=== PATIENT | female | born 1965 | race Caucasian/White ===

== ENCOUNTER → 2016-03-30 | Outpatient (CLI) | payer OTHER ==
[2016-03-30 13:15] LABS: Basophils % (A) 0 %; CH 30.7; CHCM 33.2; Eosinophils # (A) 0.1 k/uL (0-0.7); Eosinophils % (A) 1 %; HCT 46.1 % (34.0-46.0); HDW 2.98; HGB 15.1 gm/dL (11.4-16.0); Luc # (Auto) 0.12; Luc % (Auto) 2; Lymphocytes # (A) 1.5 k/uL (1.0-4.8); Lymphocytes % (A) 25 %; MCH 30.3 pg (25.0-35.0); MCHC 32.7 g/dL (31.0-37.0); MCV 92.8 fL (80.0-100.0); Mean Platelet Volume 7.5; Monocytes # (A) 0.2 k/uL (0-1.0); Monocytes % (A) 4 %; Neutrophils # (A) 4.2 k/uL (1.3-7.7); Neutrophils % (A) 69 %; RBC 4.97 m/uL (3.80-5.40); RDW 15.3 % (11.5-15.5); WBC 6.1 k/uL (3.8-10.6); WBC (Perox) 6.28
[2016-03-30 13:25] LABS: ALT 61 U/L (9-52); AST 37 U/L (14-36); Alkaline Phosphatase 109 U/L (38-126); Amylase <30 U/L (30-110); Anion Gap 14 mmol/L; Blood Urea Nitrogen 8 mg/dL (7-17); Calcium 9.8 mg/dL (8.4-10.2); Carbon Dioxide 27 mmol/L (22-30); Chloride 99 mmol/L (98-107); Glucose 346 mg/dL (74-99); Non-African American GFR(MDRD) >60 (>60 ml/min/1.73 sqM); Potassium 4.5 mmol/L (3.5-5.1); Sodium 140 mmol/L (137-145); Total Bilirubin 0.9 mg/dL (0.2-1.3); Total Protein 8.3 g/dL (6.3-8.2)
--- NOTE | 2016-03-30 14:35 | US ---
EXAMINATION TYPE: US abdomen complete DATE OF EXAM: 03/30/2016 1:54 PM COMPARISON: NONE CLINICAL HISTORY: R10.9 UNSPEC.ABD.PAIN. epigastric pain x 4 days; brother and dad have pancreatic CA ; diabetic EXAM MEASUREMENTS: Liver Length: 23.6 cm Gallbladder Wall: 0.2 cm CBD: 0.5 cm Spleen: 13.9 x14.4 x 6.2 cm Right Kidney: 12.9 x 7.8 x 4.0 cm Left Kidney: 11.9 x 6.8 x 5.4 cm TECHNOLOGIST IMPRESSION: Pancreas: The pancreas is echogenic and poorly visualized. Liver: fatty with focal sparing noted near gallbladder; enlarged Gallbladder: posterior wall sludge and mobile in LLD Evidence for sonographic Hollins's sign: more tender at level of pancreas CBD: wnl Spleen: enlarged Right Kidney: thinner A/P view when compared to left renal Left Kidney: wnl Upper IVC: wnl Abd Aorta: wnl, distal aorta is gassed out IMPRESSION: HEPATOSPLENOMEGALY.
[2016-03-30 15:01] LABS: Erythrocyte Sedimentation Rate 11 mm/hr (0-20)
== END | disposition home or self-care (01) ==
LOC: RADUSWWP 12:54
PROVIDERS: ATTEND Family Medicine
DX: R16.2 Hepatomegaly with splenomegaly, not elsewhere classified (principal); R10.9 Unspecified abdominal pain
CPT/HCPCS: 76700; 80053; 82150; 83690; 85025; 85652

== ENCOUNTER → 2016-04-03 | Outpatient (CLI) | payer OTHER ==
--- NOTE | 2016-04-03 19:31 | NM ---
EXAMINATION TYPE: NM hepatobiliary wo EF DATE OF EXAM: 04/03/2016 6:32 PM COMPARISON: NONE HISTORY: Right upper quadrant pain TECHNIQUE: After the intravenous administration of 5.5 mCi Tc 99m Mebrofenin hepatobiliary scintigrap hy is performed. Immediate images post injection. FINDINGS: There is prompt uptake of the tracer by the liver that has normal size and contour. There is tracer i n the common bile duct at 10 minutes and in the small bowel at 12 minutes which excludes obstruction of the common bile duct. The delayed images appear to show an oval-shaped area of feint tracer accumu lation in the right upper quadrant consistent with a gallbladder. This is seen on the 3 hour image. IMPRESSION: No focal liver defect. Common bile duct is not obstructed. There is abnormal very little tracer accumulation in the gallbladder suggestive of gallbladder dysfun ction and partial cystic duct obstruction.
== END | disposition home or self-care (01) ==
LOC: RADNMMAIN 14:35
PROVIDERS: ATTEND Family Medicine
DX: R10.11 Right upper quadrant pain (principal)
CPT/HCPCS: 78226; A9537

== ENCOUNTER 2016-04-14 09:18 | Inpatient (IN) | payer OTHER ==
[2016-04-10 10:47] VITALS: BMI 33.3
[~2016-04-14 09:18] MED LIST: DEXAMETHASONE SOD PHOSPHATE 10 MG/ML 1 ML VIAL IV ONE; HYDROmorphone 1 MG/ML 1 ML SYRINGE IVP PRN; MIDAZOLAM 2 MG/2 ML VIAL IV PRN; ONDANSETRON 4 MG/2 ML VIAL IVP ONE; SCOPOLAMINE 1.5MG/72HR PATCH TRANSDERM ONE; ceFAZolin 2 GM in SODIUM CHLORIDE 0.9% 100 ML IVPB ONE
[2016-04-14] MEDS: LACTATED RINGERS 1,000 ML IV SCH ×2 (10:16→10:20)
[2016-04-14] MEDS: LIDOCAINE 1% 20 ML VIAL (10MG/ML) FOR IV START INTRADERMA PRN ×2 (10:17→10:20)
[2016-04-14 10:25] LABS: Glucose,Whole Blood 346 mg/dL (75-99)
[2016-04-14] MEDS ORDERED: INSULIN LISPRO (humaLOG) 300 UNIT/3 ML VIAL SQ ONE ×2 (10:29→13:58)
[2016-04-14] MEDS ORDERED: HEPARIN SODIUM,PORCINE 5,000 UNIT/ML 1 ML VIAL SQ ONE (10:29)
--- NOTE | 2016-04-14 10:31 | P.HPADDEND ---
H&P Addendum H&P Addendum Date: 04/14/16 The patient continues to have RUQ pain. I have recommended a Robot assisted possible laparoscopic possible open cholecystectomy. The patient has consented and is willing to proceed.
[2016-04-14] MEDS ORDERED: SUCCINYLCHOLINE CHLORIDE 100 MG/5 ML SYR IV ONE (10:42)
[2016-04-14] MEDS ORDERED: NEOSTIGMINE 1 MG/ML 10 ML VIAL ONE (10:42)
[2016-04-14] MEDS ORDERED: fentaNYL (PF) 50 MCG/ML 2 ML AMP ONE (10:42)
[2016-04-14] MEDS ORDERED: HYDROmorphone (PF) 1 MG/ML ONE (10:42)
[2016-04-14] MEDS ORDERED: ROCURONIUM BROMIDE 10 MG/ML 10 ML VIAL IV ONE (10:42)
[2016-04-14] MEDS ORDERED: MIDAZOLAM 2 MG/2 ML VIAL ONE (10:42)
[2016-04-14] MEDS ORDERED: GLYCOPYRROLATE 0.2 MG/ML 2 ML VIAL ONE (10:42)
[2016-04-14] MEDS ORDERED: LIDOCAINE 1% INJ 10MG/ML (20 ML MDV) ONE (10:42)
[2016-04-14] MEDS ORDERED: PROPOFOL 10 MG/ML 20 ML VIAL IV ONE (10:42)
[2016-04-14] MEDS ORDERED: BUPIVACAIN-EPI 0.25%-1:200,000 30 ML VIAL SQ ONE (11:11)
[2016-04-14] MEDS ORDERED: LACTATED RINGERS 1,000 ML IV ONE ×3 (13:28→13:54)
[2016-04-14] MEDS ORDERED: ACETAMINOPHEN TAB 325 MG TAB PO PRN (13:54)
[2016-04-14] MEDS ORDERED: NALOXONE 0.4 MG/ML 1 ML VIAL IV PRN (13:54)
[2016-04-14] MEDS ORDERED: ONDANSETRON 4 MG/2 ML VIAL IVP PRN (13:54)
[2016-04-14] MEDS ORDERED: PROMETHAZINE 25 MG TAB PO PRN (13:54)
[2016-04-14 13:57] LABS: Glucose,Whole Blood 365 mg/dL (75-99)
--- NOTE | 2016-04-14 14:35 | P.OP ---
Date of Procedure: 04/14/16 Preoperative Diagnosis: Biliary Dyskinesia Postoperative Diagnosis: Acute and chronic cholecsytitis Procedure(s) Performed: Robot assisted laparoscopic cholecystectomy Anesthesia: AUTUMN Surgeon: Rosie Hernandes Estimated Blood Loss (ml): 50 Pathology: other Condition: stable Disposition: PACU Indications for Procedure: RIght upper quadrant pain Operative Findings: Large distended gallbladder which was acutely inflamed Very large fatty liver that was difficult to retract Significant Amount of intra-abdominal adhesions in the lower half of the abdomen. Stented acutely inflamed gallbladder filled with gallbladder sludge Description of Procedure: Patient is a 41-year-old female who presented with right upper quadrant pain and a clinical diagnosis of chronic cholecystitis was made. After appropriate informed consent and answering all the patient's questions patient taken the operating placement position and given general anesthesia with endotracheal intubation. After an unsuccessful attempt to use the Veress needle for insufflation at the infraumbilical region left upper quadrant was identified and Veress needle was used to enter the abdominal cavity and insufflated to 15 mmHg after confirming its position with the drop test. Once the abdomen insufflated 5 mm Optiview was used to enter the abdominal cavity through the left upper quadrant. At this time we identified significant amount of adhesions from previous surgeries around the [facility]. Another 5 mm port was placed in the left lower quadrant that was a to use as an assist port. Through that 5 mm port using electrocautery those adhesions were taken down so as to allow for placement of the remaining ports. 28 mm ports were placed in the right lower quadrant to monitor port was placed lateral to the umbilicus. The left upper quadrant 500 port was replaced with a 8 mm robotic port. Once all these reports were placed patient placed in reverse Trendelenburg and towards the left. . The robot was docked and Prograsp was taken in arm 2, Cardiere forceps were taken and arm 3 . Camera was through the 12 mm umbilical port site. And a hook cautery was taken in the arm 1. Gallbladder was retracted cephalad and superiorly. Inflammatory adhesions were taken down with the help of electrocautery. Due to the very large fatty liver was difficult to retract appropriately. Assistance was used through the 5 mm cyst port to retract the gallbladder. Peritoneal attachment to the liver on both sides were taken down. In doing so inadvertently we cauterized through the cystic artery. Is actually allowed us to pull down all the inflammatory adhesions. And ultimately gave us good critical view off the cystic duct was then exposed hepatic plate of the gallbladder fossa. Once this that was done the cystic duct was clearly thoroughly skeletonized. Extra-large 5-13 mm hemoclips were placed around the cystic duct and transected sharply with the help of a scissors. The gallbladder had been inadvertently punctured and required multiple irrigation during the procedure. Please also note bradycardia and also been used to help with dissection. The gallbladder was then taken off the gallbladder fossa with electrocautery placed in the Endo Catch bag after undocking the robot and removed the 12 mm port site. Due to continued bleeding from the adhesions that were previously taken down they were cauterized and hemostasis secured. Collar fossa was inspected and cauterized. Surgicel was placed within the gallbladder fossa. Abdomen was thoroughly irrigated and sucked dry there were no spilled stones. Due to the fact there was significant amount of inflammation and spillage around drain was placed in the subhepatic fossa brought out the left 5 mm assist port site. It was secured with the help of 2-0 nylon. Abdomen was thoroughly irrigated and sucked dry. Once this was done the procedure had been completed. There are 12 Mediport site was closed with the help of a David Ta using 0 Vicryl. All 8 mm ports were then removed abdomen was thoroughly desufflated. Skin was closed with 4-0 Monocryl and 6 Dermabond was applied. Patient tolerated procedure well and is was extubated and taken to recovery room in stable condition. Jimenes catheter was removed prior to extubation.
--- NOTE | 2016-04-14 14:45 | P.DS ---
Providers Date of admission: 04/14/16 Expected date of discharge: 04/16/16 Attending physician: Rosie Shields Primary care physician: Edinson Robles - Discharge Diagnosis(es) (1) Morbid (severe) obesity due to excess calories Status: Acute (2) Cholecystitis Status: Acute (3) Diabetic acidosis, type II Status: Acute Hospital Course: Patient a 50-year-old female who presented with right upper quadrant pain radiating to the patch with equivocal HIDA scan showing partial cystic duct obstruction. The gallbladder did show up. Ultrasound showed sludge. Due to continued right upper quadrant pain she was initially placed on antibiotics and scheduled for the first available opening for elective laparoscopy cholecystectomy. Informed consent was obtained for robotic possible straight laparoscopic possible open cholecystectomy. Robot-assisted laparoscopic cholecystectomy was performed and a drain was left in place due to the significant amount of drainage. Patient tolerated the procedure well there were no complications. Postoperatively the patient to a diet was advanced LEIGH drain was monitored closely. Labs were a repeatedly monitored. She continued to make good progress, ambulating, toerlating a diet. Her blood sugars had been elevated at admission due to poor diabteic control and the prim resason for her hospital stay was her pre-existeing hyperglycemia. She was managed inititally in an insulin drip after which her blood sugar control was doen on the lantus. SHe is being discharged home after the blood sugars are in a good range. From the surgical standpoint htere have been no issues. SHe is to keep the drain since it is still putting out signifcant amount of serosanguinous discharge. The patient was discharged home on [place] for pain, Augmentin 875 by mouth twice a day for a week. She is to follow-up in my clinic in 7- 10 days. Pertinent Studies: USG ? sludge HIDA scan Partial cystic duct obstruction Procedures: Robot assisted laparoscopic cholecystectomy Patient Condition at Discharge: Good Plan - Discharge Summary New Discharge Prescriptions: Amoxicillin/Potassium Clav [Augmentin 875-125 Tablet] 1 tab PO Q12HR #8 tab HYDROcodone/APAP 5-325MG [[place] 5-325] 1 tab PO Q4HR PRN #25 tab PRN Reason: Pain Magnesium Hydroxide [Milk of Magnesia] 30 ml PO Q24H PRN #600 ml PRN Reason: Constipation Discharge Medication List Acetaminophen Tab [Tylenol Tab] 650 mg PO Q4-6H PRN 04/10/16 [History] INSULIN LISPRO (HumaLOG) [HumaLOG] See Protocol SQ BID PRN 04/10/16 [History] Insulin Glargine [Lantus] 56 unit SQ BID 04/10/16 [History] Pnv with Ca,No.72/Iron/FA [ Plus Tablet] 1 tab PO DAILY 04/10/16 [ History] sitaGLIPtin PHOS/metFORMIN HCL [Janumet 50-500 mg Tablet] 1 tab PO BID 04/10/16 [History] Amoxic-Pot Clav 875-125Mg [Augmentin 875-125] 1 tab PO BID 04/14/16 [History] Amoxicillin/Potassium Clav [Augmentin 875-125 Tablet] 1 tab PO Q12HR #8 tab [Rx] HYDROcodone/APAP 5-325MG [[place] 5-325] 1 tab PO Q4HR PRN #25 tab 04/14/16 [Rx] Levothyroxine Sodium [Synthroid] 200 mcg PO DAILY 04/14/16 [History] Lisinopril-Hctz 10-12.5 mg [Zestoretic 10-12.5] 1 tab PO DAILY 04/14/16 [History ] Magnesium Hydroxide [Milk of Magnesia] 30 ml PO Q24H PRN #600 ml 04/14/16 [Rx] Follow up Appointment(s)/Referral(s): Rosie Shields MD [STAFF PHYSICIAN] - 04/20/16 2:20 pm Karol Dorantes DO [REFERRING] - 04/17/16 (CALLED PT OFFICE SPOKE TO EVELINE ABOUT APPT. STATES WILL SEND VERSE WRITER A MESSAGE AND CALL PT TO SCHEDULE APPT FOR TIGHTER DIABETIC CONTROL) Shalini Ellis DO [REFERRING] - 04/28/16 Activity/Diet/Wound Care/Special Instructions: Regular diet FOLLOWING CONSISTENT CARB DIET AMbulate as tolerated Use incentive spirometer as directed No driving on pain medications or when having pain May shower in 24 hours No heavy liftin more than 20 lbs for 6 weeks leave jJP drain in till we in follow up visit with dr shields wednesday in office CALL OFFICE WITH ANY QUESTIONS COMMENTS CONCERNS, WORSENING SYMPTOMS. Discharge Disposition: HOME SELF-CARE
[2016-04-14 15:47] LABS: Amylase 59 U/L (30-110)
[2016-04-14] MEDS: KETOROLAC 30 MG/ML 1 ML VIAL IVP SCH ×2 (16:03→20:55)
[2016-04-14] MEDS: SODIUM CHLORIDE 0.9% 1,000 ML IV SCH (17:25)
[2016-04-14] MEDS: HYDROmorphone 1 MG/ML 1 ML SYRINGE IVP PRN ×2 (17:26→20:49)
[2016-04-14] MEDS: PIPERACILLIN-TAZOBACTAM 3.375 GM in DEXTROSE/WATER 1 50ML.BAG IVPB SCH (17:29)
[2016-04-14] MEDS ORDERED: LINAGLIPTIN 5 MG TABLET PO SCH (17:30)
[2016-04-14] MEDS ORDERED: metFORMIN 500 MG TAB PO SCH (17:30)
[2016-04-14 17:52] LABS: Glucose,Whole Blood 438 mg/dL (75-99)
[2016-04-14] MEDS ORDERED: INSULIN LISPRO (humaLOG) 300 UNIT/3 ML VIAL SQ SCH (18:00)
[2016-04-14] MEDS: INSULIN REGULAR 100 UNIT in SODIUM CHLORIDE 0.9% 100 ML IV SCH (18:59)
[2016-04-14 19:04] LABS: Glucose,Whole Blood 397 mg/dL (75-99)
[2016-04-14 20:06] LABS: Hemoglobin A1C 13.6 % (4.2-6.1)
[2016-04-14 20:09] LABS: Glucose,Whole Blood 392 mg/dL (75-99)
[2016-04-14] MEDS ORDERED: INSULIN GLARGINE 100 UNIT/ML 10 ML VIAL SQ SCH (21:00)
[2016-04-14 22:01] LABS: Glucose,Whole Blood 418 mg/dL (75-99)
[2016-04-14 23:06] LABS: Glucose,Whole Blood 400 mg/dL (75-99)
[2016-04-14] MEDS: DOCUSATE 100 MG CAP PO SCH (23:08)
[2016-04-14] MEDS: FAMOTIDINE 20 MG TAB PO SCH (23:08)
[2016-04-15] MEDS: PIPERACILLIN-TAZOBACTAM 3.375 GM in DEXTROSE/WATER 1 50ML.BAG IVPB SCH ×4 (00:05→23:59)
[2016-04-15] MEDS: HYDROmorphone 1 MG/ML 1 ML SYRINGE IVP PRN ×4 (00:13→09:31)
[2016-04-15 01:08] LABS: Glucose,Whole Blood 252 mg/dL (75-99)
[2016-04-15 03:01] LABS: Glucose,Whole Blood 195 mg/dL (75-99)
[2016-04-15] MEDS: KETOROLAC 30 MG/ML 1 ML VIAL IVP SCH ×4 (03:03→21:53)
[2016-04-15] MEDS: INSULIN REGULAR 100 UNIT in SODIUM CHLORIDE 0.9% 100 ML IV SCH (03:17)
[2016-04-15 05:00] LABS: Glucose,Whole Blood 190 mg/dL (75-99)
[2016-04-15] MEDS: SODIUM CHLORIDE 0.9% 1,000 ML IV SCH ×2 (05:02→21:56)
--- NOTE | 2016-04-15 06:25 | CONS ---
DATE OF CONSULTATION: 04/14/2016 REASON FOR CONSULTATION: Medical management requested by Dr. Hernandes. CONSULTATION: This is a 50-year-old patient who follows with Dr. Robles and Dr. Karol Parsons. Patient's chronic conditions include hypertension, hypothyroidism, fatty liver and patient got poorly controlled diabetes. Sugars often times running in the 250s. The patient underwent a laparoscopic cholecystectomy by Dr. Hernandes, found to have a very acutely inflamed gallbladder with gallbladder sludge. Some intra-abdominal lesions were present and a fatty liver was found. Patient came back to the floor, found her sugars ( ) 400, I started the patient on insulin drip. Patient was having pain at the operative site, not much of an appetite. REVIEW OF SYSTEMS: CONSTITUTIONAL: Weak and tired. HEENT: None. RESPIRATORY: None. CARDIOVASCULAR: None. GASTROINTESTINAL: Abdominal pain. GENITOURINARY: None. MUSCULOSKELETAL: None. DERMATOLOGIC: None. HEMATOLOGIC: None. LYMPHATICS: None. PSYCHIATRY: None. NEUROLOGICAL: None. Past history of uncontrolled diabetes, hypertension, hypothyroid, uterine cancer. PAST SURGICAL HISTORY: Hysterectomy, thyroid, cyst on the back, mole upper right ear, LASIK eye surgery. SOCIAL HISTORY: Patient smoked 1/2 to a pack a day for about 30 years; stopped in 2013. 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 FAMILY HISTORY: Pancreatic cancer. HOME MEDICATIONS: 1. Janumet 50/500 one tablet p.o. b.i.d. 2. Plus 1 capsule daily. 3. Zestoretic 11/26.5 one tablet daily. 4. Synthroid 200 mcg daily. 5. Lantus 56 units subcu b.i.d. 6. Humalog scale p.r.n. 7. Augmentin 875 b.i.d. 8. Milk of magnesia. 9. [place] 1 tablet p.o. q.4 p.r.n. ALLERGIES: None. On examination, temperature 98.2, pulse 112, respirations 16, blood pressure 144/88, pulse ox 93% on room air. GENERAL APPEARANCE: Obese; BMI 33.4, sitting up, tired appearing. EYES: Pupils equal. Conjunctivae normal. HEENT: External appearance of nose and ears normal. Oral cavity normal. NECK: JVD not raised. Mass not palpable. RESPIRATORY: Effort normal. LUNGS: Slightly decreased breath sounds. CARDIOVASCULAR: First and second sounds normal. No edema. ABDOMEN: Distended, soft, tenderness. Bowel sounds sluggish. LYMPHATIC: No lymph nodes palpable in the neck or axillae. PSYCHIATRY: Alert and oriented x3. Mood and affect normal. NEUROLOGICAL: Pupils equal. Cranial nerves grossly intact. Power and sensation grossly intact. INVESTIGATIONS: Accu-Cheks up to 400s. Hemoglobin A1c 13.6. ASSESSMENT: 1. Diabetes mellitus type 2, uncontrolled, has been uncontrolled as an outpatient. 2. Essential hypertension. 3. Hypothyroidism. 4. Fatty liver. 5. Obesity. body mass index 33.4. PLAN: Patient's home medications will be resumed. Patient will be put back on Lantus starting in the morning. Will give the patient insulin drip tonight. Will check labs in the morning. We will also start the patient on Humalog with meals. Care was discussed with the patient. Patient also ( ) dietitian. Thank you, Dr. Hernandes
[2016-04-15] MEDS: LEVOTHYROXINE 100 MCG TAB PO SCH (06:42)
[2016-04-15 07:00] LABS: Glucose,Whole Blood 182 mg/dL (75-99)
[2016-04-15 07:24] LABS: Basophils % (A) 0 %; CH 30.8; CHCM 33.1; Eosinophils % (A) 0 %; HCT 42.9 % (34.0-46.0); HDW 2.85; HGB 13.9 gm/dL (11.4-16.0); Luc # (Auto) 0.11; Luc % (Auto) 1; Lymphocytes # (A) 1.3 k/uL (1.0-4.8); Lymphocytes % (A) 15 %; MCH 30.3 pg (25.0-35.0); MCHC 32.4 g/dL (31.0-37.0); MCV 93.5 fL (80.0-100.0); Mean Platelet Volume 7.5; Monocytes # (A) 0.4 k/uL (0-1.0); Monocytes % (A) 5 %; Neutrophils # (A) 6.8 k/uL (1.3-7.7); Neutrophils % (A) 79 %; RBC 4.58 m/uL (3.80-5.40); RDW 14.9 % (11.5-15.5); WBC 8.7 k/uL (3.8-10.6); WBC (Perox) 9.29
[2016-04-15] MEDS ORDERED: INSULIN LISPRO (humaLOG) 300 UNIT/3 ML VIAL SQ SCH ×2 (07:30→08:30)
[2016-04-15 07:45] LABS: ALT 107 U/L (9-52); AST 103 U/L (14-36); Alkaline Phosphatase 80 U/L (38-126); Amylase 40 U/L (30-110); Anion Gap 12 mmol/L; Blood Urea Nitrogen 16 mg/dL (7-17); Calcium 9.3 mg/dL (8.4-10.2); Carbon Dioxide 26 mmol/L (22-30); Chloride 100 mmol/L (98-107); Glucose 181 mg/dL (74-99); Non-African American GFR(MDRD) >60 (>60 ml/min/1.73 sqM); Potassium 4.5 mmol/L (3.5-5.1); Sodium 138 mmol/L (137-145); Total Bilirubin 1.1 mg/dL (0.2-1.3); Total Protein 7.1 g/dL (6.3-8.2)
[2016-04-15] MEDS ORDERED: INSULIN GLARGINE 100 UNIT/ML 10 ML VIAL SQ SCH ×2 (08:30)
[2016-04-15] MEDS: ENOXAPARIN 40 MG/0.4 ML SYRINGE SQ SCH (08:34)
[2016-04-15] MEDS: metFORMIN 500 MG TAB PO SCH ×2 (08:35→17:30)
[2016-04-15] MEDS: DOCUSATE 100 MG CAP PO SCH ×2 (08:36→21:45)
[2016-04-15] MEDS: FAMOTIDINE 20 MG TAB PO SCH ×2 (08:36→21:45)
[2016-04-15] MEDS: LISINOPRIL-HCTZ 10-12.5 MG 1 EACH TAB PO SCH (08:36)
--- NOTE | 2016-04-15 09:56 | P.PN ---
Subjective 50-year-old female being seen on rounds this morning. Patient is sitting up in bed is postop day 1 Robot assisted laparoscopic cholecystectomy for Acute and chronic cholecsytitis. Patient states "having a lot of pain on the left lower quadrant where the [place] drain is it hurts to even touch it the pain medication is not effective in completely taken away the pain on the left lower quadrant patient does report having slight discomfort at the surgical site. Did note the patient's blood sugars are elevated this morning the Lantus and the Humalog insulin doses have been adjusted for better glycemic control. Patient is aware of her elevated hemoglobin A1c of 13 and states she has an appointment with an educational program assistant in [facility] at the end of the month. The white counts morning is 8.7 patients afebrile. The lipase is 99 this morning it was elevated for 98 on April 14 electrolytes were within normal limits Objective - Vital Signs Vital signs: Vital Signs Temp 97.4 F L 04/14/16 23:00 Pulse 72 04/15/16 06:56 Resp 16 04/15/16 06:56 BP 97/72 04/15/16 06:56 Pulse Ox 93 L 04/15/16 06:56 Intake & Output 04/14/16 04/15/16 04/15/16 18:59 06:59 18:59 Intake Total 2720 1603.0 Output Total 480 440 Balance 2240 1163.0 Weight 96.615 kg Intake: IV 2600 Intake, IV Titration 103.0 Amount Insulin Regular 100 unit 103.0 In Sodium Chloride 0.9% 100 ml @ Titrate IV .Q0M [facility] Rx#:[id number] Oral 120 1500 Output: Drainage 140 Left Abdomen 140 Urine 400 300 Estimated Blood Loss 80 Other: Voiding Method Toilet # Voids 1 - Exam Physical exam 50-year-old female patient sitting up in bed does not appear in any acute distress does report having left lower quadrant pain at the [place] site Lungs essentially clear adequate air movement on room air no cough noted Heart S1-S2 audible and regular Abdomen soft slight tenderness left lower quadrant bowel tones active surgical sites no redness noted [place] drain in the left lower quadrant serous drainage noted patient states belching no nausea no vomiting tolerating diet no stool Extremities Venodyne's on to the bilateral lower extremities - Labs CBC & Chem 7: 04/15/16 06:38 04/15/16 06:38 Labs: Abnormal Lab Results - Last 24 Hours (Table) 04/14/16 04/14/16 04/14/16 Range/Units 10:15 13:54 15:12 Plt Count (150-450) k/uL Glucose (74-99) mg/dL POC Glucose (mg/dL) 346 H 365 H (75-99) mg/dL Hemoglobin A1c 13.6 H (4.2-6.1) % AST (14-36) U/L ALT (9-52) U/L Lipase (23-300) U/L 04/14/16 04/14/16 04/14/16 Range/Units 15:12 17:51 18:53 Plt Count (150-450) k/uL Glucose (74-99) mg/dL POC Glucose (mg/dL) 438 H 397 H (75-99) mg/dL Hemoglobin A1c (4.2-6.1) % AST (14-36) U/L ALT (9-52) U/L Lipase 498 H (23-300) U/L 04/14/16 04/14/16 04/14/16 Range/Units 20:07 21:59 23:05 Plt Count (150-450) k/uL Glucose (74-99) mg/dL POC Glucose (mg/dL) 392 H 418 H 400 H (75-99) mg/dL Hemoglobin A1c (4.2-6.1) % AST (14-36) U/L ALT (9-52) U/L Lipase (23-300) U/L 04/15/16 04/15/16 04/15/16 Range/Units 01:06 03:00 04:58 Plt Count (150-450) k/uL Glucose (74-99) mg/dL POC Glucose (mg/dL) 252 H 195 H 190 H (75-99) mg/dL Hemoglobin A1c (4.2-6.1) % AST (14-36) U/L ALT (9-52) U/L Lipase (23-300) U/L 04/15/16 04/15/16 04/15/16 Range/Units 06:38 06:38 06:58 Plt Count 112 L (150-450) k/uL Glucose 181 H (74-99) mg/dL POC Glucose (mg/dL) 182 H (75-99) mg/dL Hemoglobin A1c (4.2-6.1) % AST 103 H (14-36) U/L ALT 107 H (9-52) U/L Lipase (23-300) U/L Assessment and Plan Plan: Impression Morbid obesity BMI 33 due to excessive calories Type 2 diabetes insulin requiring uncontrolled elevated hemoglobin A1c of 13 Episodes postop hyperglycemia Robot assisted laparoscopic cholecystectomy due to Acute and chronic cholecsytitis done on April 14 Present on admission right upper quadrant abdominal pain suspect due to acute cholecystitis Large distended gallbladder acutely inflamed with a very large fatty liver noted operative findings Plan Continue postop surgical care Monitor blood sugars address as indicated Prepped for possible discharge Further recommendations pending Pain control Possible removing [place] drain before discharge The above dictated assessment and findings were discussed with dr campa. Impression and the plan of care have been dictated as directed. Leilani Alvarez nurse practitioner acting as a scribe for dr campa
[2016-04-15] MEDS ORDERED: HYDROmorphone 1 MG/ML 1 ML SYRINGE IVP PRN (11:48)
[2016-04-15 12:16] LABS: Glucose,Whole Blood 203 mg/dL (75-99)
[2016-04-15] MEDS: INSULIN LISPRO (humaLOG) 300 UNIT/3 ML VIAL SQ SCH ×2 (12:40→17:29)
[2016-04-15] MEDS: HYDROcodone/APAP 5-325MG 1 EACH TAB PO PRN ×3 (12:43→21:44)
[2016-04-15 17:20] LABS: Glucose,Whole Blood 157 mg/dL (75-99)
[2016-04-15 21:10] LABS: Glucose,Whole Blood 163 mg/dL (75-99)
[2016-04-15] MEDS: INSULIN GLARGINE 100 UNIT/ML 10 ML VIAL SQ SCH (21:52)
--- NOTE | 2016-04-15 23:14 | PN ---
DATE OF SERVICE: 04/15/2016 PRESENTING COMPLAINT: Cholecystectomy. INTERVAL HISTORY: Patient is status post cholecystectomy. As an outpatient, sugars have not been controlled. Patient did state that she normally has lunch and supper; has a very small breakfast ( ) like granola, but she did have breakfast today. Abdominal pain is present. Has not passed any flatus. Lying in bed. Has been out of bed. Review of systems done for constitutional, cardiovascular, GI, pulmonary; relevant findings as above. Current medications are reviewed that include IV Zosyn. On examination, temperature 97.4, pulse 86, respiration 14, blood pressure 104/59, pulse ox 97%. GENERAL APPEARANCE: Lying in bed, comfortable. EYES: Pupils equal. Conjunctivae normal. NECK: JVD not raised. Mass not palpable. RESPIRATORY: Effort normal. LUNGS: Decreased breath sounds. CARDIOVASCULAR: First and second sounds normal. No edema. ABDOMEN: Tender. Soft. Bowel sounds sluggish. Drain is present. PSYCHIATRY: Alert and oriented x3. Mood and affect normal. INVESTIGATIONS: White count 8.7, hemoglobin 13.9. Potassium 4.5. Accu-Cheks are noted. ASSESSMENT: 1. Diabetes mellitus, type 2, uncontrolled, chronically on insulin as an outpatient. 2. Essential hypertension. 3. Hypothyroidism. 4. Fatty liver. 5. Obesity; body mass index of 33.4. 6. Status post cholecystectomy. PLAN: Patient's insulin dose was adjusted by Leilani Alvarez. We have to be careful with the Humalog given 3 times, as patient normally has only 2 meals at home. This was discussed with the patient, that she is to keep a close eye on her carbohydrate count, and if appetite goes up, may have to increase the Humalog dose.
[2016-04-16 02:44] LABS: Glucose,Whole Blood 174 mg/dL (75-99)
[2016-04-16] MEDS: KETOROLAC 30 MG/ML 1 ML VIAL IVP SCH ×2 (02:44→08:16)
[2016-04-16] MEDS: SODIUM CHLORIDE 0.9% 1,000 ML IV SCH (02:50)
[2016-04-16 02:52] VITALS: TEMP 97.5
[2016-04-16] MEDS: LEVOTHYROXINE 100 MCG TAB PO SCH (06:31)
[2016-04-16] MEDS: HYDROcodone/APAP 5-325MG 1 EACH TAB PO PRN (06:32)
[2016-04-16 07:09] LABS: Glucose,Whole Blood 143 mg/dL (75-99)
[2016-04-16 07:52] LABS: Basophils % (A) 0 %; CH 30.8; CHCM 33.2; Eosinophils % (A) 1 %; HCT 37.5 % (34.0-46.0); HDW 2.91; HGB 12.5 gm/dL (11.4-16.0); Luc # (Auto) 0.15; Luc % (Auto) 3; Lymphocytes # (A) 1.6 k/uL (1.0-4.8); Lymphocytes % (A) 34 %; MCH 31.3 pg (25.0-35.0); MCHC 33.4 g/dL (31.0-37.0); MCV 93.5 fL (80.0-100.0); Mean Platelet Volume 8.8; Monocytes # (A) 0.2 k/uL (0-1.0); Monocytes % (A) 5 %; Neutrophils # (A) 2.7 k/uL (1.3-7.7); Neutrophils % (A) 57 %; RBC 4.01 m/uL (3.80-5.40); RDW 15.2 % (11.5-15.5); WBC 4.7 k/uL (3.8-10.6); WBC (Perox) 4.77
[2016-04-16 08:05] LABS: ALT 79 U/L (9-52); AST 50 U/L (14-36); Alkaline Phosphatase 67 U/L (38-126); Anion Gap 10 mmol/L; Blood Urea Nitrogen 19 mg/dL (7-17); Carbon Dioxide 26 mmol/L (22-30); Chloride 103 mmol/L (98-107); Glucose 152 mg/dL (74-99); Non-African American GFR(MDRD) >60 (>60 ml/min/1.73 sqM); Potassium 3.7 mmol/L (3.5-5.1); Sodium 139 mmol/L (137-145); Total Bilirubin 0.9 mg/dL (0.2-1.3); Total Protein 6.2 g/dL (6.3-8.2)
[2016-04-16] MEDS: INSULIN GLARGINE 100 UNIT/ML 10 ML VIAL SQ SCH (08:15)
[2016-04-16] MEDS: INSULIN LISPRO (humaLOG) 300 UNIT/3 ML VIAL SQ SCH (08:15)
[2016-04-16] MEDS: ENOXAPARIN 40 MG/0.4 ML SYRINGE SQ SCH (08:16)
[2016-04-16] MEDS: PIPERACILLIN-TAZOBACTAM 3.375 GM in DEXTROSE/WATER 1 50ML.BAG IVPB SCH (08:18)
[2016-04-16] MEDS: metFORMIN 500 MG TAB PO SCH (08:19)
[2016-04-16] MEDS: LISINOPRIL-HCTZ 10-12.5 MG 1 EACH TAB PO SCH (08:19)
[2016-04-16] MEDS: FAMOTIDINE 20 MG TAB PO SCH (08:19)
[2016-04-16] MEDS: DOCUSATE 100 MG CAP PO SCH (08:19)
[2016-04-16 09:27] VITALS: BP 120/74; PULSE 73; RESP 12
--- NOTE | 2016-04-17 07:59 | PN ---
DATE OF SERVICE: 04/16/2016 PRESENTING COMPLAINT: Cholecystectomy. INTERVAL HISTORY: This patient was seen by me earlier today, status post cholecystectomy. Doing better. Tolerating a soft bland diet. Patient due to see an forklift operator as an outpatient. Sugars are doing better. Care was discussed with the patient and at bedside. Did pass some flatus. REVIEW OF SYSTEMS: Review of systems done for constitutional, cardiovascular, GI, pulmonary; relevant findings as above. The patient has been up and out of bed. Current medications are reviewed. On examination, temperature 97.5, pulse 73, respiratory rate 12, blood pressure 127/74, pulse ox 94% on room air. GENERAL APPEARANCE: Sitting up, more comfortable. EYES: Pupils equal, conjunctivae normal. NECK: JVD not raised. Mass not palpable. RESPIRATORY: Effort normal. LUNGS: Decreased breath sounds. CARDIOVASCULAR: First and second sounds normal. No edema. ABDOMEN: Soft. Tender. Bowel sounds are present. PSYCHIATRY: Alert and oriented x3. Mood and affect is normal. INVESTIGATIONS: White count 4.3, hemoglobin 12.5. Potassium 3.7. Accu-Cheks are noted. ASSESSMENT: 1. Diabetes mellitus, type II, chronically on insulin. 2. Essential hypertension. 3. Hypothyroidism. 4. Fatty liver. 5. Obesity, body mass index of 33.4. 6. Status post cholecystectomy. PLAN: Care was discussed with the patient and ( ), she is due to see forklift operator. Thank you, Dr. Hernandes.
== END 2016-04-16 11:58 | disposition home or self-care (01) | DRG 419 ==
LOC: OR 09:18 → 6PED 13:23 → OR 22:41 → OBSVTOIN 04-15 11:40
PROVIDERS: ADMIT Surgery; ATTEND Surgery
PROC: 8E0W4CZ Robotic Assisted Procedure of Trunk Region, Percutaneous Endoscopic Approach (ICD-10-PCS; 2016-04-14)
PROC: 0FT44ZZ Resection of Gallbladder, Percutaneous Endoscopic Approach (ICD-10-PCS; principal; 2016-04-14 11:00)
DX: K81.0 Acute cholecystitis (principal); E11.65 Type 2 diabetes mellitus with hyperglycemia; E66.01 Morbid (severe) obesity due to excess calories; K76.0 Fatty (change of) liver, not elsewhere classified; K81.1 Chronic cholecystitis; Z68.33 Body mass index [BMI] 33.0-33.9, adult; K66.0 Peritoneal adhesions (postprocedural) (postinfection); E03.9 Hypothyroidism, unspecified; I10 Essential (primary) hypertension; Z87.891 Personal history of nicotine dependence; Z79.84 Long term (current) use of oral hypoglycemic drugs; Z79.4 Long term (current) use of insulin; Z79.899 Other long term (current) drug therapy; Z80.0 Family history of malignant neoplasm of digestive organs
CPT/HCPCS: 80053; 82150; 83036; 83690; 85025; 88304; 96366; 96372; 96375; 96376

== ENCOUNTER 2016-07-21 08:44 | Inpatient (IN) | payer OTHER ==
[2016-07-21] MEDS ORDERED: HYDROmorphone 1 MG/ML 1 ML SYRINGE IVP STA ×2 (09:12→12:19)
[2016-07-21] MEDS ORDERED: ONDANSETRON 4 MG/2 ML VIAL IVP STA (09:12)
[2016-07-21] MEDS ORDERED: SODIUM CHLORIDE 0.9% 1,000 ML IV STA (09:12)
[2016-07-21] MEDS ORDERED: FAMOTIDINE 20 MG/2 ML VIAL IV STA (09:13)
--- NOTE | 2016-07-21 09:14 | ED ---
General Adult HPI - General Source: patient, RN notes reviewed Mode of arrival: ambulatory Limitations: no limitations <Lionel Daniel - Last Filed: 07/21/16 12:21> <Jesus Ivory - Last Filed: 07/21/16 14:52> - General Chief complaint: Abdominal Pain Stated complaint: abd pain Time Seen by Provider: 07/21/16 09:06 - History of Present Illness Initial comments: Patient 51-year-old female who presents emergency room today with a chief complaint of left upper quadrant pain on and off over the last 2 weeks. States been constant starting yesterday. Patient admits to cholecystectomy back in March of this year. Patient does admit that does seem to be worse when she eats or drinks. Patient does admit that she does have tenderness to palpation and light touch to upper left upper quadrant and left side of her back. Patient denies any recent fever, chills, shortness of breath, chest pain, back pain, nausea or vomiting, numbness or tingling, dysuria or hematuria, constipation or diarrhea, headaches or visual changes, or any other complaints. (Lionel Daniel) - Related Data Home Medications Medication Instructions Recorded Confirmed Acetaminophen Tab [Tylenol Tab] 650 mg PO Q4-6H PRN 04/10/16 07/21/16 INSULIN LISPRO (HumaLOG) [HumaLOG] See Protocol SQ BID PRN 04/10/16 07/21/16 Insulin Glargine [Lantus] 71 units SQ HS 04/10/16 07/21/16 Pnv,Calcium 72/Iron/Folic Acid 1 tab PO DAILY 04/10/16 07/21/16 [ Plus Tablet] sitaGLIPtin PHOS/metFORMIN HCL 1 tab PO BID 04/10/16 07/21/16 [Janumet 50-500 mg Tablet] Levothyroxine Sodium [Synthroid] 200 mcg PO DAILY 04/14/16 07/21/16 Lisinopril-Hctz 10-12.5 mg 1 tab PO DAILY 04/14/16 07/21/16 [Zestoretic 10-12.5] Magnesium Hydroxide [Milk of 2,400 mg PO Q24H PRN 07/21/16 07/21/16 Magnesia] Previous Rx's Medication Instructions Recorded HYDROcodone/APAP 5-325MG [[place] 1 tab PO Q4HR PRN #25 tab 04/14/16 325] Allergies Allergy/AdvReac Type Severity Reaction Status Date / Time No Known Allergies Allergy Verified 07/21/16 09:35 Review of Systems ROS Other: All systems not noted in ROS Statement are negative. <FredyLionel - Last Filed: 07/21/16 12:21> ROS Other: All systems not noted in ROS Statement are negative. <Jesus Ivory - Last Filed: 07/21/16 14:52> ROS Statement: Those systems with pertinent positive or pertinent negative responses have been documented in the HPI. 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 History of Any Multi-Drug Resistant Organisms: None Reported Past Surgical History: Cholecystectomy, Hysterectomy Additional Past Surgical History / Comment(s): THYROID, CYST ON BACK, MOLE ABOVE RIGHT EAR, LASIK EYE SURGERY. Past Anesthesia/Blood Transfusion Reactions: No Reported Reaction Past Psychological History: No Psychological Hx Reported Smoking Status: Former smoker Past Alcohol Use History: Rare Additional Past Alcohol Use History / Comment(s): SMOKED 1/2 -1 PPD FOR APPROX 30 YEARS. QUIT SMOKING JULY 2013. Past Drug Use History: None Reported - Past Family History Father Family Medical History: Cancer Additional Family Medical History / Comment(s): PANCREATIC CANCER Brother(s) Family Medical History: Cancer, Pulmonary Embolus Additional Family Medical History / Comment(s): PANCREATIC CANCER <FredyLionel - Last Filed: 07/21/16 12:21> General Exam Limitations: no limitations <FredyLionel - Last Filed: 07/21/16 12:21> <Jesus Ivory - Last Filed: 07/21/16 14:52> - General Exam Comments Initial Comments: General: The patient is awake and alert, in no distress, and does not appear acutely ill. Eye: Pupils are equal, round and reactive to light, extra-ocular movements are intact. No nystagmus. There is normal conjunctiva bilaterally. No signs of icterus. Ears, nose, mouth and throat: There are moist mucous membranes and no oral lesions. Neck: The neck is supple, there is no tenderness or JVD. Cardiovascular: There is a regular rate and rhythm. No murmur, rub or gallop is appreciated. Respiratory: Lungs are clear to auscultation, respirations are non-labored, breath sounds are equal. No wheezes, stridor, rales, or rhonchi. Gastrointestinal: Normal appearance abdomen. Normal bowel sounds. Abdomen soft on palpation. Patient does have tenderness left lower quadrant mild. Mild tenderness left upper and left CVA. No rebound tenderness. No guarding. Musculoskeletal: Normal ROM, no tenderness. Strength 5/5. Sensation intact. Pulses equal bilaterally 2+. Neurological: A&O x 3. CN II-XII intact, There are no obvious motor or sensory deficits. Coordination appears grossly intact. Speech is normal. Skin: Skin is warm and dry and no rashes or lesions are noted. Psychiatric: Cooperative, appropriate mood & affect, normal judgment. (Lionel Daniel) Medical Decision Making - Lab Data Result diagrams: 07/21/16 09:00 07/21/16 09:00 <Lionel Daniel - Last Filed: 07/21/16 12:21> - Lab Data Result diagrams: 07/21/16 09:00 07/21/16 09:00 <Jesus Ivory - Last Filed: 07/21/16 14:52> - Medical Decision Making Patient's CT reviewed shows 1. Hepatosplenomegaly with low-density liver failure and cirrhosis with portal hypertension as there is pelvic varices along course of distal esophagus noted. 2. Suspicious chronic glass nodules visualized bilateral lung bases, differentials include septic emboli or multifocal infectious process, metastatic disease related to known endometrial cancer cannot be excluded. Small to moderate amount of free fluid in the pelvis is noted, abnormal finding. 3. Mild extrahepatic biliary dilation out of portion to expected after cholecystectomy. Patient's labs reviewed elevated glucose due to diabetes. Remaining labs unremarkable. Patient will be admitted for further evaluation started on antibiotics cover for possible infectious etiology. (Lionel Daniel) - Lab Data Lab Results 07/21/16 07/21/16 07/21/16 Range/Units 09:00 09:00 09:00 WBC 4.7 (3.8-10.6) k/uL RBC 4.87 (3.80-5.40) m/uL Hgb 15.4 (11.4-16.0) gm/dL Hct 45.2 (34.0-46.0) % MCV 92.7 (80.0-100.0) fL MCH 31.7 (25.0-35.0) pg MCHC 34.2 (31.0-37.0) g/dL RDW 13.8 (11.5-15.5) % Plt Count 98 L (150-450) k/uL Neutrophils % 74 % Lymphocytes % 21 % Monocytes % 3 % Eosinophils % 1 % Basophils % 0 % Neutrophils # 3.4 (1.3-7.7) k/uL Lymphocytes # 1.0 (1.0-4.8) k/uL Monocytes # 0.1 (0-1.0) k/uL Eosinophils # 0.0 (0-0.7) k/uL Basophils # 0.0 (0-0.2) k/uL Sodium 138 (137-145) mmol/L Potassium 4.3 (3.5-5.1) mmol/L Chloride 101 (98-107) mmol/L Carbon Dioxide 26 (22-30) mmol/L Anion Gap 11 mmol/L BUN 10 (7-17) mg/dL Creatinine 0.49 L (0.52-1.04) mg/dL Est GFR (MDRD) Af Amer >60 (>60 ml/min/1.73 sqM) Est GFR (MDRD) Non-Af >60 (>60 ml/min/1.73 sqM) Glucose 361 H (74-99) mg/dL Calcium 9.5 (8.4-10.2) mg/dL Total Bilirubin 0.9 (0.2-1.3) mg/dL AST 30 (14-36) U/L ALT 36 (9-52) U/L Alkaline Phosphatase 94 (38-126) U/L Total Creatine Kinase 33 (30-135) U/L CK-MB (CK-2) 0.2 (0.0-2.4) ng/mL CK-MB (CK-2) Rel Index 0.6 Troponin I <0.012 (0.000-0.034) ng/mL Total Protein 7.3 (6.3-8.2) g/dL Albumin 4.3 (3.5-5.0) g/dL Amylase 52 (30-110) U/L Lipase 219 (23-300) U/L Urine Color Urine Appearance (Clear) Urine pH (5.0-8.0) Ur Specific [place] (1.001-1.035) Urine Protein (Negative) Urine Glucose (UA) (Negative) Urine Ketones (Negative) Urine Blood (Negative) Urine Nitrite (Negative) Urine Bilirubin (Negative) Urine Urobilinogen (<2.0) mg/dL Ur Leukocyte Esterase (Negative) Urine RBC (0-5) /hpf Urine WBC (0-5) /hpf Ur Squamous Epith Cells (0-4) /hpf Urine Mucus (None) /hpf 07/21/16 Range/Units 09:40 WBC (3.8-10.6) k/uL RBC (3.80-5.40) m/uL Hgb (11.4-16.0) gm/dL Hct (34.0-46.0) % MCV (80.0-100.0) fL MCH (25.0-35.0) pg MCHC (31.0-37.0) g/dL RDW (11.5-15.5) % Plt Count (150-450) k/uL Neutrophils % % Lymphocytes % % Monocytes % % Eosinophils % % Basophils % % Neutrophils # (1.3-7.7) k/uL Lymphocytes # (1.0-4.8) k/uL Monocytes # (0-1.0) k/uL Eosinophils # (0-0.7) k/uL Basophils # (0-0.2) k/uL Sodium (137-145) mmol/L Potassium (3.5-5.1) mmol/L Chloride (98-107) mmol/L Carbon Dioxide (22-30) mmol/L Anion Gap mmol/L BUN (7-17) mg/dL Creatinine (0.52-1.04) mg/dL Est GFR (MDRD) Af Amer (>60 ml/min/1.73 sqM) Est GFR (MDRD) Non-Af (>60 ml/min/1.73 sqM) Glucose (74-99) mg/dL Calcium (8.4-10.2) mg/dL Total Bilirubin (0.2-1.3) mg/dL AST (14-36) U/L ALT (9-52) U/L Alkaline Phosphatase (38-126) U/L Total Creatine Kinase (30-135) U/L CK-MB (CK-2) (0.0-2.4) ng/mL CK-MB (CK-2) Rel Index Troponin I (0.000-0.034) ng/mL Total Protein (6.3-8.2) g/dL Albumin (3.5-5.0) g/dL Amylase (30-110) U/L Lipase (23-300) U/L Urine Color Yellow Urine Appearance Clear (Clear) Urine pH 6.0 (5.0-8.0) Ur Specific [place] 1.014 (1.001-1.035) Urine Protein Negative (Negative) Urine Glucose (UA) 4+ H (Negative) Urine Ketones Negative (Negative) Urine Blood Negative (Negative) Urine Nitrite Negative (Negative) Urine Bilirubin Negative (Negative) Urine Urobilinogen <2.0 (<2.0) mg/dL Ur Leukocyte Esterase Small H (Negative) Urine RBC 1 (0-5) /hpf Urine WBC 2 (0-5) /hpf Ur Squamous Epith Cells <1 (0-4) /hpf Urine Mucus Occasional H (None) /hpf Disposition Time of Disposition: 12:24 <Lionel Daniel - Last Filed: 07/21/16 12:21> <Jesus Ivory - Last Filed: 07/21/16 14:52> Clinical Impression: Community acquired pneumonia Disposition: ADMITTED IP TO THIS [facility] Condition: Stable Referrals: Karol Dorantes DO [Primary Care Provider] - 1-2 days Addendum entered and electronically signed by Lionel Daniel PA-C 07/21/16 12: 50: EKG performed at 0926: Shows sinus rhythm at 90 bpm. MO interval 148. QRS 88. QT/QTC 372/455. No acute ST changes.
[2016-07-21 09:48] LABS: ALT 36 U/L (9-52); AST 30 U/L (14-36); Alkaline Phosphatase 94 U/L (38-126); Amylase 52 U/L (30-110); Anion Gap 11 mmol/L; Blood Urea Nitrogen 10 mg/dL (7-17); Calcium 9.5 mg/dL (8.4-10.2); Carbon Dioxide 26 mmol/L (22-30); Chloride 101 mmol/L (98-107); Glucose 361 mg/dL (74-99); Non-African American GFR(MDRD) >60 (>60 ml/min/1.73 sqM); Potassium 4.3 mmol/L (3.5-5.1); Sodium 138 mmol/L (137-145); Total Bilirubin 0.9 mg/dL (0.2-1.3); Total Protein 7.3 g/dL (6.3-8.2)
[2016-07-21 09:51] LABS: Basophils % (A) 0 %; CH 31.7; CHCM 34.4; Eosinophils % (A) 1 %; HCT 45.2 % (34.0-46.0); HGB 15.4 gm/dL (11.4-16.0); Luc # (Auto) 0.05; Luc % (Auto) 1; Lymphocytes % (A) 21 %; MCH 31.7 pg (25.0-35.0); MCHC 34.2 g/dL (31.0-37.0); MCV 92.7 fL (80.0-100.0); Mean Platelet Volume 7.8; Monocytes # (A) 0.1 k/uL (0-1.0); Monocytes % (A) 3 %; Neutrophils # (A) 3.4 k/uL (1.3-7.7); Neutrophils % (A) 74 %; RBC 4.87 m/uL (3.80-5.40); RDW 13.8 % (11.5-15.5); WBC 4.7 k/uL (3.8-10.6); WBC (Perox) 4.81
[2016-07-21 10:02] LABS: Creatine Kinase 33 U/L (30-135)
[2016-07-21 10:12] LABS: Appearance,Urine Clear (Clear); Bilirubin,Urine Negative (Negative); Glucose,Urine (UA) 4+ (Negative); Ketones,Urine Negative (Negative); Leukocyte Esterase,Urine Small (Negative); Mucus,Urine Occasional /hpf; Nitrite,Urine Negative (Negative); Particle Count 1910; Protein,Urine Negative (Negative); RBC,Urine 1 /hpf (0-5); Specific Gravity,Urine 1.014 (1.001-1.035); Squamous Epithelial Cell,Urine <1 /hpf (0-4); UA Billing (MACRO vs. MICRO) MICRO; Urobilinogen,Urine <2.0 mg/dL (<2.0); WBC,Urine 2 /hpf (0-5)
[2016-07-21 10:14] LABS: Creatine Kinase MB 0.2 ng/mL (0.0-2.4); Troponin I <0.012 ng/mL (0.000-0.034)
[2016-07-21] MEDS ORDERED: RX INFO: IV CONTRAST WAS GIVEN 1 EACH MISC MISCELLANE PRN ×2 (10:44→17:40)
--- NOTE | 2016-07-21 11:32 | CT ---
EXAMINATION TYPE: CT abdomen pelvis w con DATE OF EXAM: 07/21/2016 HISTORY: LUQ pain for 2 weeks. History of uterine cancer CT DLP: 1723mGycm Automated Exposure Control for Dose Reduction was Utilized. CONTRAST: CT scan of the abdomen and pelvis is performed without oral but with IV Contrast, patient injected wi th 100 mL of Omnipaque 300. COMPARISON: None. FINDINGS: LUNG BASES: There are multiple suspicious groundglass nodules in the visualized lung bases bilateral ly, largest measures 11 x 7 mm on axial image 3. LIVER/GB: Liver is slightly enlarged in size and hypodense in appearance . Gallbladder is surgically absent. Common bile duct measures 14 mm in diameter which is mildly dilated even after cholecystectom y. No suspicious intrahepatic ductal dilatation is seen. No intraluminal CT dense gallstone is identi fied. PANCREAS: Pancreatic duct is visualized but not suspiciously dilated in the head. SPLEEN: Splenomegaly is present measuring 17.1 cm on long axis on axial image 23 ADRENALS: No significant abnormality is seen. KIDNEYS: There are a few simple appearing cyst upper to mid pole level right kidney. BOWEL: Dilation of bowel is suboptimal secondary to lack of enteric contrast. No suspicious small or large bowel dilatation is seen. There are prominent varices along course of the distal esophagus UTERUS/ADNEXA: Small to moderate amount of free fluid in pelvis on axial image 69 is noted. Uterus is surgically absent. Left-sided pelvic phleboliths are noted. LYMPH NODES: No greater than 1cm abdominal or pelvic lymph nodes are appreciated. OSSEOUS STRUCTURES: Levoconvex scoliosis centered in the upper lumbar spine is present. There is face t arthropathy lower lumbar levels. There is moderate disc space narrowing L5-S1 level OTHER: There is mild mixed plaque in the abdominal aorta extending into pelvic iliac branch vessels IMPRESSION: 1. Hepatosplenomegaly with low density liver favoring cirrhosis with portal hypertension as there are pelvic varices along course of distal esophagus noted. Clinical and lab correlation advised. 2. Suspicious groundglass nodules in visualized bilateral lung bases, differential includes septic em boli or multifocal infectious process, metastatic disease related to known endometrial cancer cannot be excluded. Small to moderate amount of free fluid in pelvis is noted, abnormal finding. 3. Mild extrahepatic biliary dilatation out of proportion to expected after cholecystectomy. Need to further investigate by ERCP should be based on clinical correlation.
[2016-07-21] MEDS ORDERED: LEVOFLOXACIN 500MG-D5W PMX 500 MG in DEXTROSE/WATER 1 100ML.BAG IVPB STA (12:16)
[2016-07-21] MEDS ORDERED: SODIUM CHLORIDE 0.9% 1,000 ML IV ONE (12:24)
[2016-07-21] MEDS ORDERED: ACETAMINOPHEN TAB 325 MG TAB PO PRN (12:24)
[2016-07-21] MEDS ORDERED: ONDANSETRON 4 MG/2 ML VIAL IVP PRN ×2 (12:24→18:26)
[2016-07-21] MEDS ORDERED: HYDROcodone/APAP 5-325MG 1 EACH TAB PO PRN (12:24)
[2016-07-21] MEDS ORDERED: HYDROmorphone 1 MG/ML 1 ML SYRINGE IV PRN (12:24)
[2016-07-21] MEDS ORDERED: NALOXONE 0.4 MG/ML 1 ML VIAL IV PRN (12:24)
[2016-07-21] MEDS ORDERED: MAGNESIUM HYDROXIDE 2,400 MG/10 ML CUP PO PRN (16:40)
[2016-07-21] MEDS ORDERED: IV VANCOMYCIN PER PHARMACY 1 EACH MISC MISCELLANE PRN (16:43)
[2016-07-21] MEDS: INSULIN DETEMIR 100 UNIT/ML 10 ML VIAL SQ SCH (17:17)
[2016-07-21] MEDS: PIPERACILLIN-TAZOBACTAM 3.375 GM in DEXTROSE/WATER 1 50ML.BAG IVPB SCH (17:17)
[2016-07-21 17:22] LABS: Glucose,Whole Blood 200 mg/dL (75-99)
[2016-07-21] MEDS ORDERED: VANCOMYCIN 1,500 MG in SODIUM CHLORIDE 0.9% 250 ML IVPB SCH (18:00)
[2016-07-21] MEDS: INSULIN LISPRO (humaLOG) 300 UNIT/3 ML VIAL SQ SCH ×2 (18:37→21:54)
[2016-07-21 18:55] LABS: Appearance,Urine Clear (Clear); Bilirubin,Urine Negative (Negative); Glucose,Urine (UA) Negative (Negative); Ketones,Urine Negative (Negative); Leukocyte Esterase,Urine Negative (Negative); Nitrite,Urine Negative (Negative); PH, Urine 5.5 (5.0-8.0); Protein,Urine Negative (Negative); Specific Gravity,Urine 1.006 (1.001-1.035); UA Billing (MACRO vs. MICRO) CHEM; Urobilinogen,Urine <2.0 mg/dL (<2.0)
[2016-07-21 19:10] LABS: INR 1.1 (<1.1); Prothrombin Time 11.2 sec (9.0-12.0)
[2016-07-21 20:05] VITALS: BMI 32.8
[2016-07-21] MEDS: metFORMIN 500 MG TAB PO SCH (20:43)
[2016-07-21 21:42] LABS: Glucose,Whole Blood 207 mg/dL (75-99)
[2016-07-21] MEDS: VANCOMYCIN 1,500 MG in SODIUM CHLORIDE 0.9% 250 ML IVPB SCH (21:54)
[2016-07-22] MEDS: PIPERACILLIN-TAZOBACTAM 3.375 GM in DEXTROSE/WATER 1 50ML.BAG IVPB SCH ×3 (00:11→17:57)
[2016-07-22 02:57] LABS: Glucose,Whole Blood 121 mg/dL (75-99)
[2016-07-22] MEDS: VANCOMYCIN 1,500 MG in SODIUM CHLORIDE 0.9% 250 ML IVPB SCH ×3 (05:03→23:31)
[2016-07-22] MEDS: LEVOTHYROXINE 100 MCG TAB PO SCH (06:17)
[2016-07-22] MEDS: LINAGLIPTIN 5 MG TABLET PO SCH (07:40)
[2016-07-22] MEDS: LISINOPRIL-HCTZ 10-12.5 MG 1 EACH TAB PO SCH (07:40)
[2016-07-22] MEDS: INSULIN LISPRO (humaLOG) 300 UNIT/3 ML VIAL SQ SCH ×4 (07:40→22:01)
[2016-07-22] MEDS: metFORMIN 500 MG TAB PO SCH ×2 (07:41→21:56)
[2016-07-22 07:51] LABS: Glucose,Whole Blood 150 mg/dL (75-99)
[2016-07-22 08:06] LABS: Basophils % (A) 0 %; CH 31.2; CHCM 32.6; Eosinophils % (A) 0 %; HCT 42.5 % (34.0-46.0); HDW 2.91; HGB 13.8 gm/dL (11.4-16.0); Luc # (Auto) 0.04; Luc % (Auto) 1; Lymphocytes % (A) 24 %; MCH 31.3 pg (25.0-35.0); MCHC 32.5 g/dL (31.0-37.0); MCV 96.2 fL (80.0-100.0); Mean Platelet Volume 8.1; Monocytes # (A) 0.2 k/uL (0-1.0); Monocytes % (A) 4 %; Neutrophils # (A) 2.8 k/uL (1.3-7.7); Neutrophils % (A) 71 %; RBC 4.41 m/uL (3.80-5.40); RDW 14.1 % (11.5-15.5); WBC 3.9 k/uL (3.8-10.6)
[2016-07-22 08:18] LABS: Anion Gap 8 mmol/L; Blood Urea Nitrogen 8 mg/dL (7-17); Calcium 8.9 mg/dL (8.4-10.2); Carbon Dioxide 29 mmol/L (22-30); Chloride 103 mmol/L (98-107); Cholesterol 146 mg/dL (<200); Glucose 150 mg/dL (74-99); HDL Cholesterol 27 mg/dL (40-60); Magnesium 1.8 mg/dL (1.6-2.3); Non-African American GFR(MDRD) >60 (>60 ml/min/1.73 sqM); Potassium 4.2 mmol/L (3.5-5.1); Sodium 140 mmol/L (137-145); Triglycerides 128 mg/dL (<150)
--- NOTE | 2016-07-22 08:43 | HP ---
DATE OF ADMISSION: CHIEF COMPLAINT: Left sided lower chest pain and left upper quadrant abdominal pain. HISTORY OF PRESENT ILLNESS: This 51-year-old woman with a past medical history of multiple medical problems including history of diabetes, hypertension, hypothyroidism, history of uterine cancer, history of anemia, history of cholecystectomy and hysterectomy being followed by Dr. Karol Dorantes in the outpatient setting was admitted with left-sided lower chest pain. The pain was sharp in character which was increasing in respiration intensity and the pain was there for 2 weeks and patient came to [facility] and was admitted for further evaluation and treatment. Abdomen and pelvis CAT scan was done, which showed hepatosplenomegaly with low-density liver favoring possible cirrhosis and portal hypertension and pelvic varices; suspicious ground-glass nodules in visualized bilateral lung bases, multifocal infectious process and mild extrahepatic biliary dilation also noted. There is no history of any fever, rigors. No history of headache, loss of consciousness or seizures. Pneumonia is suspected. PAST MEDICAL HISTORY: History of uterine cancer, history of anemia, history of hypothyroidism, history of diabetes mellitus type 2, hypertension, cholecystectomy. Medications prior to admission home medications are: 1. Janumet 50/500 one p.o. b.i.d. 2. Milk of magnesia 2.4 grams p.o. q.24 hours p.r.n. 3. Zestoretic 10/12.5 mg p.o. daily. 4. Synthroid 200 mcg p.o. daily. 5. Lantus 71 unit subcu q.h.s. 6. Humalog scale. 7. [place] 5 mg q.4 p.r.n. 8. Tylenol 650 q.4 p.r.n. 9. vitamins 1 p.o. daily. Allergies are none. FAMILY HISTORY: History of pancreatic cancer in the family. SOCIAL HISTORY: Previous history of smoking. No history of alcohol intake. REVIEW OF SYSTEMS: ENT: No diminishing hearing. No diminished vision. CARDIOVASCULAR: No angina. RESPIRATORY: As mentioned earlier. GI: As mentioned earlier. : No dysuria. NERVOUS SYSTEM: No numbness or weakness. ALLERGY/IMMUNOLOGY: No history of asthma. MUSCULOSKELETAL: As mentioned earlier. HEMATOLOGY/ONCOLOGY: No history of anemia. ENDOCRINE: History of diabetes mellitus and hypothyroidism. CONSTITUTIONAL: As mentioned earlier. DERMATOLOGY: Negative. RHEUMATOLOGY: Negative. PSYCHIATRY: As mentioned earlier. PHYSICAL EXAMINATION: The patient is alert and oriented x3. Pulse is 76, blood pressure 116/71, respiration 16, temperature 98.7, pulse ox 94% on room. HEENT: Conjunctivae normal. Oral mucosa moist. NECK: No jugular venous distention. No carotid bruit. No lymph node enlargement. No thyroid enlargement. CARDIOVASCULAR: S1 and S2, muffled. No S3, no S4. RESPIRATORY: Breath sounds diminished at the bases. A few scattered rhonchi, no crackles. ABDOMEN: Soft, obese, nontender. No mass palpable. No hepatosplenomegaly. No ascites. LEGS: No edema, no swelling. NERVOUS SYSTEM: Higher function as mentioned. Moves all 4 limbs. No focal motor or sensory deficit. LYMPHATICS: No lymphadenopathy of neck, axillae or groin. SKIN: No ulcer, rash, bleeding. JOINTS: No active deforming arthropathy. Labs are at this time shows platelet counts are 98, otherwise, CBC within normal limits and glucose 361. UA noted. ASSESSMENT: 1. Left-sided lower chest pain for evaluation and possible pleurisy, rule out pneumonia. 2. Thrombocytopenia of undetermined etiology. 3. Diabetes mellitus type 2. 4. Hypertension. 5. Hypothyroidism. 6. History of uterine cancer. 7. Possible hepatosplenomegaly and portal hypertension and cirrhosis of undetermined etiology from the CAT scan. 8. History of cholecystectomy. 9. Remote history of nicotine dependence. 10. Bilateral septic emboli versus multifocal disease process, possibly metastatic disease or scarring. 11. Mild extrahepatic biliary dilatation. 12. FULL CODE. RECOMMENDATIONS AND DISCUSSION: This 51-year-old woman who presented with multiple complex medical issues, we will monitor the patient closely, continue with current medications, continue with symptomatic treatment. Otherwise, empiric antibiotics have been initiated. I would recommend also evaluation by Dr. Olivas as well as Gastroenterology as well. planned. See orders for details. Prognosis guarded. Further recommendations to follow. Symptomatic treatment of the pain has also been provided. CORTNEY
[2016-07-22 08:46] LABS: Hepatitis B Surface Ag Index 0.07
[2016-07-22 08:52] LABS: Hepatitis B Core IgM Index 0.03
[2016-07-22 09:03] LABS: Hepatitis C Virus IgG Ab Negative (Negative); Hepatitis C Virus IgG Index 0.03
--- NOTE | 2016-07-22 10:12 | P.CONS ---
History of Present Illness - Reason for Consult Consult date: 07/22/16 Cirrhosis evaluation Requesting physician: Nacho Buchanan - History of Present Illness 51-year-old female with a history of uterine carcinoma 2008 without chemo/ radiation at [facility], laparoscopic cholecystectomy March 2016, anemia , diabetes mellitus, hypertension, hypothyroidism, and remote nicotine cigarette dependency quit 2013. Presents with left upper quadrant abdominal pain chronically for 6 months but exacerbated 2 weeks without fever. Pain seems to exacerbate with food/drink/ movement. Pain somewhat similar to the RUQ pain she was experiencing prior to cholecystectomy. Denies weight loss hematemesis hematochezia or melena. FMH: Father and brother from pancreatic cancer (brother 2 weeks ago). Consultation requested for cirrhosis evaluation. CT abdomen and pelvis with IV contrast only reported an enlarged liver and spleen favoring cirrhosis with portal hypertension. CBD 14 mm. No suspicious intrahepatic ductal dilatation seen. No calculi. Pancreatic duct not dilated. Spleen measuring 17.1 cm. Prominent pelvic varices as well as along the course of the distal esophagus. Small to moderate amount of fluid and pelvis. Groundglass nodules bilateral lung bases differential septic emboli or multifocal infectious process, metastatic disease related to known endometrial cancer cannot be excluded. Upon review of chemistries since March 2016: White count 3.9-6.1. Hemoglobin 13.8-15.1. MCV 92-96. Platelet 80-123. INR 1.1. Total bilirubin 0.9-1.1. AST 30-103. ALT 36-107. Alkaline phosphatase 67-109. Acetaminophen less than 10. Pathology from laparoscopic cholecystectomy March 2016 reported chronic cholecystitis with cholesterolosis. HIDA scan March 2016 reported abnormal minimal trace circulation of the gallbladder suggestive of gallbladder dysfunction and partial cystic duct obstruction. No history of known liver disorders, autoimmune diseases, hepatitis, alcoholism , or intravenous drug abuse. Review of Systems Constitutional: Denies fever, chills, sweats, weight gain, or loss. HEENT: Negative for migraines, blurred vision or loss, earaches, drainage, tinnitus, oral mucosal lesions, dysphagia, or odynophagia. CARDIAC: Hypertension. Negative for chest pain, arrhythmias, or palpitation. RESPIRATORY: Negative for shortness of breath, hemoptysis, cough, or sputum production. GI: See HPI for pertinent findings. : Negative for hematuria, urgency, frequency, polyuria, or dysuria. GYNc: Distributed uterine carcinoma. Negative vaginal discharge. MUSCULOSKELETAL: Negative for muscle aches, swelling, arthritis, and arthralgias. NEUROLOGIC: Negative for stroke or TIA. ENDOCRINE: Diabetes mellitus. Hypothyroidism. Negative for thyroid problems. SKIN: Negative for rash or itching. PSYCHIATRIC: Negative history for depression and anxiety Past Medical History Past Medical History: Cancer, Diabetes Mellitus, Hypertension, Thyroid Disorder Additional Past Medical History / Comment(s): HX OF UTERINE CANCER, ANEMIA, HX OF THYROID NODULES., STATES DIFFICULTY GETTING BLOOD SUGAR UNDER CONTROL - TO SEE [employer]., STATES NAUSEA AND VOMITING AND PAIN FROM GALL BLADDER. History of Any Multi-Drug Resistant Organisms: None Reported Past Surgical History: Cholecystectomy, Hysterectomy Additional Past Surgical History / Comment(s): THYROID, CYST ON BACK, MOLE ABOVE RIGHT EAR, LASIK EYE SURGERY. Past Anesthesia/Blood Transfusion Reactions: No Reported Reaction Past Psychological History: No Psychological Hx Reported Smoking Status: Former smoker Past Alcohol Use History: Rare Additional Past Alcohol Use History / Comment(s): SMOKED 1/2 -1 PPD FOR APPROX 30 YEARS. QUIT SMOKING JULY 2013. Past Drug Use History: None Reported - Past Family History Father Family Medical History: Cancer Additional Family Medical History / Comment(s): PANCREATIC CANCER Brother(s) Family Medical History: Cancer, Pulmonary Embolus Additional Family Medical History / Comment(s): PANCREATIC CANCER Medications and Allergies Home Medications Medication Instructions Recorded Confirmed Type Acetaminophen Tab [Tylenol Tab] 650 mg PO Q4-6H PRN 04/10/16 07/21/16 History INSULIN LISPRO (HumaLOG) [HumaLOG] See Protocol SQ BID PRN 04/10/16 07/21/16 History Insulin Glargine [Lantus] 71 units SQ HS 04/10/16 07/21/16 History Pnv,Calcium 72/Iron/Folic Acid 1 tab PO DAILY 04/10/16 07/21/16 History [ Plus Tablet] sitaGLIPtin PHOS/metFORMIN HCL 1 tab PO BID 04/10/16 07/21/16 History [Janumet 50-500 mg Tablet] Levothyroxine Sodium [Synthroid] 200 mcg PO DAILY 04/14/16 07/21/16 History Lisinopril-Hctz 10-12.5 mg 1 tab PO DAILY 04/14/16 07/21/16 History [Zestoretic 10-12.5] Magnesium Hydroxide [Milk of 2,400 mg PO Q24H PRN 07/21/16 07/21/16 History Magnesia] Allergies Allergy/AdvReac Type Severity Reaction Status Date / Time No Known Allergies Allergy Verified 07/21/16 09:35 Physical Exam Vitals: Vital Signs Temp Pulse Pulse Resp BP BP Pulse Ox 07/22/16 07:00 97.1 F L 65 18 100/53 93 L 07/21/16 23:00 97.8 F 82 17 115/62 96 07/21/16 15:30 18 07/21/16 15:25 98.0 F 80 18 105/56 98 07/21/16 14:13 98.7 F 76 16 116/71 96 07/21/16 13:30 96.2 F L 78 20 96/67 94 L 07/21/16 12:18 88 16 109/55 93 L 07/21/16 10:33 78 16 133/70 95 07/21/16 09:49 74 16 123/64 94 L 07/21/16 08:45 97.8 F 95 16 128/70 95 Intake and Output 07/21/16 07/22/16 07/22/16 22:59 06:59 14:59 Intake Total 100 Output Total 200 Balance -100 Intake: Intake, IV Titration 100 Amount Levofloxacin 500Mg-D5w 100 Pmx 500 mg In Dextrose/ Water 1 100ml.bag @ 100 mls/hr IVPB Q24H [facility] Rx#: [id number] Output: Urine 200 Other: Voiding Method Toilet Toilet # Voids 2 1 Weight 95.254 kg General appearance: The patient is alert, oriented, in no acute distress. HET: Head is normocephalic and atraumatic. Pupils are equal and reactive. Oropharynx is clear without lesions. Facial telangiectasias. Neck: Supple without lymphadenopathy. Trachea midline. Heart: S1 S2. Regular rate and rhythm. Lungs: No crackles or wheezes are heard. Abdomen: Soft, LUQ tenderness, nondistended with bowel sounds. No peritoneal signs. No palpable masses. Extremities: Normal skin color and turgor. No cyanosis, rash, ulceration, clubbing, or edema. Radial and pedal pulses are 2/4 bilaterally. Neurological: No focal deficits. Strength and sensation are grossly intact. Results CBC & Chem 7: 07/22/16 07:20 07/22/16 07:20 Labs: Abnormal Lab Results - Last 24 Hours (Table) 07/21/16 07/21/16 07/21/16 Range/Units 09:00 09:00 09:22 Plt Count 98 L (150-450) k/uL Creatinine 0.49 L (0.52-1.04) mg/dL Glucose 361 H (74-99) mg/dL POC Glucose (mg/dL) (75-99) mg/dL Hemoglobin A1c 12.0 H (4.2-6.1) % Urine Glucose (UA) (Negative) Ur Leukocyte Esterase (Negative) Urine Mucus (None) /hpf 07/21/16 07/21/16 07/21/16 Range/Units 09:40 17:19 21:05 Plt Count (150-450) k/uL Creatinine (0.52-1.04) mg/dL Glucose (74-99) mg/dL POC Glucose (mg/dL) 200 H 207 H (75-99) mg/dL Hemoglobin A1c (4.2-6.1) % Urine Glucose (UA) 4+ H (Negative) Ur Leukocyte Esterase Small H (Negative) Urine Mucus Occasional H (None) /hpf 07/22/16 07/22/16 07/22/16 Range/Units 02:55 07:16 07:20 Plt Count 101 L (150-450) k/uL Creatinine (0.52-1.04) mg/dL Glucose (74-99) mg/dL POC Glucose (mg/dL) 121 H 150 H (75-99) mg/dL Hemoglobin A1c (4.2-6.1) % Urine Glucose (UA) (Negative) Ur Leukocyte Esterase (Negative) Urine Mucus (None) /hpf CT scan - abdomen: report reviewed (Dr. Gregory) Assessment and Plan (1) Cirrhosis Narrative/Plan: 51-year-old female presents with left upper quadrant abdominal pain with history of cholecystectomy and biochemical radiographic imaging suggested of cirrhosis. Etiology of suspected cirrhosis is unclear at this time possible NAFLD secondary to history of diabetes, hypertension, obesity and hyperlipidemia. History of uterine carcinoma metastatic disease cannot be excluded per CT imaging. 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 Hepatitis panel. Tumor markers AFP, CEA, and CA-19-9. Serologic workup for chronic liver disease/autoimmune evaluation. 2. Pulmonary evaluation; CT chest ordered. 3. Recommend oncology consultation for further evaluation of possible metastatic disease per CT imaging, history of uterine carcinoma. 4. Consideration for MRI abdomen per clinical course. Will follow with you. Thank you for this kind referral and the opportunity to participate in the care of your patient. This consultation was discussed with Dr. Gregory. The impression and plan of care have been directed as dictated.
--- NOTE | 2016-07-22 10:55 | ECHOF ---
Referral Reason:r/o endocarditis MEASUREMENTS -------- HEIGHT: 170.2 cm WEIGHT: 95.3 kg BP: 105/56 RVIDd: 2.9 cm (< 3.3) IVSd: 1.3 cm (0.6 - 1.1) LVIDd: 4.7 cm (3.9 - 5.3) LVPWd: 1.3 cm (0.6 - 1.1) IVSs: 1.7 cm LVIDs: 3.3 cm LVPWs: 1.6 cm LAESV Index (A-L): 14.74 ml/m Ao Diam: 3.1 cm (2.0 - 3.7) LA Diam: 3.8 cm (2.7 - 3.8) MV EXCURSION: 12.169 mm (> 18.000) MV EF SLOPE: 96 mm/s (70 - 150) EPSS: 1.0 cm MV E Shivam: 0.89 m/s MV DecT: 234 ms MV A Shivam: 0.67 m/s MV E/A Ratio: 1.32 RAP: 5.00 mmHg RVSP: 8.15 mmHg FINDINGS -------- Sinus rhythm. This was a technically adequate study. There is mild concentric left ventricular hypertrophy. Overall left ventricular systolic function is normal with, an EF between 55 - 60 %. The right ventricle is normal in size and function. Normal LA size by volume 22+/-6 ml/m2. The right atrium is normal in size. The aortic valve was not well visualized. There is no evidence of aortic regurgitation. There is no evidence of aortic stenosis. The mitral valve leaflets are mildly thickened. There is trace mitral regurgitation. Trace tricuspid regurgitation present. There is no evidence of pulmonary hypertension. The right ventricular systolic pressure, as measured by Doppler, is 8.15mmHg. The pulmonic valve was not well visualized. The aortic root size is normal. The inferior vena cava is mildly dilated. CONCLUSIONS -------- 1. Sinus rhythm. 2. Trace tricuspid regurgitation present. 3. There is no evidence of pulmonary hypertension. 4. The right ventricular systolic pressure, as measured by Doppler, is 8.15mmHg. 5. The pulmonic valve was not well visualized. 6. The aortic root size is normal. 7. The inferior vena cava is mildly dilated. 8. There is mild concentric left ventricular hypertrophy. 9. Overall left ventricular systolic function is normal with, an EF between 55 - 60 %. 10. Normal LA size by volume 22+/-6 ml/m2. 11. The aortic valve was not well visualized. 12. There is no evidence of aortic regurgitation. 13. There is no evidence of aortic stenosis. 14. The mitral valve leaflets are mildly thickened. 15. There is trace mitral regurgitation. DRYWALL STRIPPER: Thai Rod RDCS
[2016-07-22 12:00] LABS: % Iron Saturation 19.8 % (20-50)
--- NOTE | 2016-07-22 12:16 | CT ---
EXAMINATION TYPE: CT chest w con DATE OF EXAM: 07/22/2016 COMPARISON: Previous CT scan of the abdomen and pelvis dated 07/21/2016 HISTORY: Nodule, pneumonia CT DLP: 472.9 mGycm Automated exposure control for dose reduction was used. CONTRAST: CT scan of the chest is performed with IV Contrast, patient injected with 100 mL of Omnipaque 300. FINDINGS: There are innumerable groundglass nodules throughout both lungs. There is no significant axillary, internal mammary, mediastinal or hilar adenopathy. There is no pleu ral or pericardial fluid. The heart is mildly enlarged. There is a small hiatal hernia. There is dilatation of the distal common bile duct which measures 13 mm. Visualized portions of the u pper abdomen are otherwise unremarkable. There is mild atrophic spondylosis within the spine. IMPRESSION: 1. MULTIPLE GROUNDGLASS NODULES THROUGHOUT BOTH LUNGS. IN A PATIENT WITH KNOWN UTERINE CANCER METASTA TIC DISEASE WOULD HAVE TO THE CONSIDERED. BRONCHIOLOALVEOLAR CARCINOMA CAN ALSO HAVE THIS APPEARANCE. OTHER DIFFERENTIAL CONSIDERATIONS INCLUDE SEPTIC EMBOLI. 2. CARDIOMEGALY. 3. SMALL HIATAL HERNIA. 4. DILATATION OF THE DISTAL COMMON BILE DUCT.
[2016-07-22 13:00] LABS: Glucose,Whole Blood 185 mg/dL (75-99)
[2016-07-22] MEDS ORDERED: LEVOFLOXACIN 500MG-D5W PMX 500 MG in DEXTROSE/WATER 1 100ML.BAG IVPB SCH (13:00)
--- NOTE | 2016-07-22 14:50 | P.CNPUL ---
History of Present Illness Consult date: 07/22/16 Chief complaint: Bilateral pulmonary nodules History of present illness: This is a 51-year-old female patient with previous history of uterine carcinoma status post hysterectomy 2009 not followed by any further treatment, along with history of thyroid nodule status post thyroidectomy was also involved in a recent cholecystectomy for chronic cholecystitis. The patient underwent her surgery approximately 2 weeks ago without any major complications and was discharged home. The patient came back to the office with some pain in the left upper quadrant/left lower chest area. She is very much concerned knowing that her brother and father were diagnosed and ultimately from pancreatic cancer. For that reason she presented to the hospital and part of further workup a CAT scan of the abdomen and pelvis was done that showed hepatosplenomegaly with a low-density livers favoring cirrhosis with portal hypertension as well as pelvic varices along the distal esophageal wall. There were also nodules some of them will groundglass and other ones were a bit more dense there is blood in lung bases and this raises the suspicion for metastatic disease and even the possibility of septic emboli was entertained. The patient is postcholecystectomy. No evidence of any significant extrahepatic balloon dilatation. The pancreas was within normal limits. Spleen was enlarged and there was splenomegaly measuring 17 cm in size. No adrenal lesions. There were a few simple appearing cyst in the upper pole of the right kidney. There was no suspicious small or large bowel lesions. I was asked to evaluate this patient based on his abnormalities. I ordered a CAT scan of the chest with contrast and the CAT scan showed multiple groundglass nodules scattered throughout the lung forman bilaterally. There was also cardiomegaly and a small hiatal hernia. There was also dilatation of the distal common bile duct. As far as the lung findings, there are innumerable groundglass nodules bilaterally without any significant mediastinal lymphadenopathy. Clinically the patient is having less pain on today's evaluation. No chest pain. No cough or sputum production. No hemoptysis. No fever chills or night sweats. No pleurisy. No recent pneumonias. 10 ex-smoker and she quit smoking back in 2013. She has undergone no previous colonoscopy. She claims that her mammogram was no more than 20 years ago and was negative. She has some baseline thrombocytopenia probably later to chronic liver disease. She is nonalcoholic. No weight loss. No other constitutional symptoms. No personal or family history of sarcoidosis. No previous history of TB exposure. Review of Systems All systems: negative Constitutional: Denies chills, Denies fever Eyes: denies blurred vision, denies pain Ears, nose, mouth and throat: Denies headache, Denies sore throat Cardiovascular: Denies chest pain, Denies shortness of breath Respiratory: Denies cough Gastrointestinal: Denies abdominal pain, Denies diarrhea, Denies nausea, Denies vomiting Genitourinary: Denies dysuria, Denies hematuria Musculoskeletal: Denies myalgias Integumentary: Denies pruritus, Denies rash Neurological: Denies numbness, Denies weakness Psychiatric: Denies anxiety, Denies depression Endocrine: Denies fatigue, Denies weight change Past Medical History Past Medical History: Cancer, Diabetes Mellitus, Hypertension, Thyroid Disorder Additional Past Medical History / Comment(s): Obesity, diabetes mellitus, hypertension, findings to suggest chronic liver cirrhosis, uterine cancer with a previous hysterectomy, chronic anemia, chronic, cytopenia, thyroid nodule status post thyroidectomy, recent cholecystectomy. History of Any Multi-Drug Resistant Organisms: None Reported Past Surgical History: Cholecystectomy, Hysterectomy Additional Past Surgical History / Comment(s): THYROID, CYST ON BACK, MOLE ABOVE RIGHT EAR, LASIK EYE SURGERY. Past Anesthesia/Blood Transfusion Reactions: No Reported Reaction Past Psychological History: No Psychological Hx Reported Smoking Status: Former smoker Past Alcohol Use History: Rare Additional Past Alcohol Use History / Comment(s): SMOKED 1/2 -1 PPD FOR APPROX 30 YEARS. QUIT SMOKING JULY 2013. Past Drug Use History: None Reported - Past Family History Father Family Medical History: Cancer Additional Family Medical History / Comment(s): PANCREATIC CANCER Brother(s) Family Medical History: Cancer, Pulmonary Embolus Additional Family Medical History / Comment(s): PANCREATIC CANCER Medications and Allergies Home Medications Medication Instructions Recorded Confirmed Type Acetaminophen Tab [Tylenol Tab] 650 mg PO Q4-6H PRN 04/10/16 07/21/16 History INSULIN LISPRO (HumaLOG) [HumaLOG] See Protocol SQ BID PRN 04/10/16 07/21/16 History Insulin Glargine [Lantus] 71 units SQ HS 04/10/16 07/21/16 History Pnv,Calcium 72/Iron/Folic Acid 1 tab PO DAILY 04/10/16 07/21/16 History [ Plus Tablet] sitaGLIPtin PHOS/metFORMIN HCL 1 tab PO BID 04/10/16 07/21/16 History [Janumet 50-500 mg Tablet] Levothyroxine Sodium [Synthroid] 200 mcg PO DAILY 04/14/16 07/21/16 History Lisinopril-Hctz 10-12.5 mg 1 tab PO DAILY 04/14/16 07/21/16 History [Zestoretic 10-12.5] Magnesium Hydroxide [Milk of 2,400 mg PO Q24H PRN 07/21/16 07/21/16 History Magnesia] Allergies Allergy/AdvReac Type Severity Reaction Status Date / Time No Known Allergies Allergy Verified 07/21/16 09:35 Physical Exam Vitals: Vital Signs Temp Pulse Pulse Resp BP BP Pulse Ox 07/22/16 08:00 65 18 07/22/16 07:00 97.1 F L 65 18 100/53 93 L 07/21/16 23:00 97.8 F 82 17 115/62 96 07/21/16 15:30 18 07/21/16 15:25 98.0 F 80 18 105/56 98 Intake and Output 07/21/16 07/22/16 07/22/16 22:59 06:59 14:59 Intake Total 100 Output Total 200 Balance -100 Intake: Intake, IV Titration 100 Amount Levofloxacin 500Mg-D5w 100 Pmx 500 mg In Dextrose/ Water 1 100ml.bag @ 100 mls/hr IVPB Q24H [facility] Rx#: [id number] Output: Urine 200 Other: Voiding Method Toilet Toilet Toilet # Voids 2 1 2 Weight 95.254 kg 95.254 kg Patient Weight 07/23/16 06:59 Weight 95.254 kg Obese, comfortable not in distress.Head exam was generally normal. There was no scleral icterus or corneal arcus. Mucous membranes were moist.Neck was supple and without jugular venous distension, thyromegaly, or carotid bruits. Carotids were easily palpable bilaterally. There was no adenopathy. Patient has significant crowding of the posterior oropharynx. There is no liver adenopathy in the neck area. Lung sounds are diminished bilaterally with clear.Cardiac exam revealed the PMI to be normally situated and sized. The rhythm was regular and no extrasystoles were noted during several minutes of auscultation. The first and second heart sounds were normal and physiologic splitting of the second heart sound was noted. There were no murmurs, rubs, clicks, or gallops.Abdominal exam revealed normal bowel sounds. The abdomen was soft, non- tender, and without masses, organomegaly, or appreciable enlargement of the abdominal aorta. Patient is obese and orders cannot be accurately palpated.Examination of the extremities revealed easily palpable radial, femoral and pedal pulses. There was no cyanosis, clubbing or edema. Results - Laboratory Findings CBC and BMP: 07/22/16 07:20 07/22/16 07:20 PT/INR, D-dimer PT 11.2 sec (9.0-12.0) 07/21/16 18:45 INR 1.1 (<1.1) 07/21/16 18:45 Abnormal lab findings: Abnormal Labs 07/21/16 07/21/16 07/21/16 09:00 09:00 09:22 Plt Count 98 L Creatinine 0.49 L Glucose 361 H POC Glucose (mg/dL) Hemoglobin A1c 12.0 H % Saturation HDL Cholesterol Urine Glucose (UA) Ur Leukocyte Esterase Urine Mucus Rheumatoid Factor 07/21/16 07/21/16 07/21/16 09:40 17:19 21:05 Plt Count Creatinine Glucose POC Glucose (mg/dL) 200 H 207 H Hemoglobin A1c % Saturation HDL Cholesterol Urine Glucose (UA) 4+ H Ur Leukocyte Esterase Small H Urine Mucus Occasional H Rheumatoid Factor 07/22/16 07/22/16 07/22/16 02:55 07:16 07:20 Plt Count 101 L Creatinine Glucose POC Glucose (mg/dL) 121 H 150 H Hemoglobin A1c % Saturation HDL Cholesterol Urine Glucose (UA) Ur Leukocyte Esterase Urine Mucus Rheumatoid Factor 07/22/16 07/22/16 07/22/16 07:20 07:20 07:20 Plt Count Creatinine Glucose 150 H POC Glucose (mg/dL) Hemoglobin A1c % Saturation 19.8 L HDL Cholesterol 27 L Urine Glucose (UA) Ur Leukocyte Esterase Urine Mucus Rheumatoid Factor 29 H 07/22/16 12:25 Plt Count Creatinine Glucose POC Glucose (mg/dL) 185 H Hemoglobin A1c % Saturation HDL Cholesterol Urine Glucose (UA) Ur Leukocyte Esterase Urine Mucus Rheumatoid Factor - Diagnostic Findings Chest x-ray: image reviewed CT scan - chest: image reviewed Assessment and Plan Plan: Assessment 1 multiple innumerable pulmonary nodules that have groundglass characteristics, not quite solid, suspicious however for an underlying malignancy which could be potentially metastatic at this point. The primary source is not clear to me at this point as the patient does not have any clear indication for any underlying primary malignancy. She has a remote history of uterine cancer for which she has undergone a hysterectomy. Septic emboli is felt to be less likely especially the that the patient is not septic looking and echocardiogram at shown no valvular vegetation. Sarcoidosis another consideration. TB and fungal infections are less likely possibilities. 2 left lower chest/left upper quadrant pain, currently under investigation 3 status cholecystectomy for chronic cholecystitis 4 mild dilatation of the distal common bile duct without any symptoms 5 obesity 6 uterine cancer with a previous hysterectomy 7 diabetes mellitus 8 previous thyroidectomy for thyroid nodules 9 liver cirrhosis based on radiographic findings. The chronic thrombocytopenia may be also another manifestations of chronic liver cirrhosis. The patient nonalcoholic. Hepatitis profile is negative. 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 Plan We'll discuss the findings with the radiologist. There is still a suspicion for underlying metastatic carcinoma causing the lung findings. We'll check tumor markers including CA-19-9, CEA, CA 125, alpha-fetoprotein, LDH, sed rate, ESR, Tushar level. We will tentatively set up this patient for bronchoscopy and bronchial lavage at this point the biopsies in the morning. The patient will be kept nothing by mouth after midnight. We'll continue to follow. May be useful also to have an oncology evaluation of this patient for their input regarding these findings.
--- NOTE | 2016-07-22 17:26 | P.PN ---
Subjective Date of service 07/22/2016. Personal being dictated for Dr. Anderson. Interval history: This a 51-year-old female admitted with left-sided lower chest pain, worsening left upper quadrant abdominal pain, in a patient with history of uterine cancer, hysterectomy without chemotherapy or radiation treatment. History of nicotine dependence, quit smoking in 2013, nonalcoholic. CT of abdomen and pelvis reported ,hepatosplenomegaly with low-density liver, possible cirrhosis, portal hypertension, pelvic and esophageal varices, suspicious groundglass nodules of bilateral lung bases-possible metastatic disease,bilateral septic emboli versus multifocal disease process, mild extrahepatic biliary dilatation. Evaluated by both pulmonary and GI with recommendations noted. Hepatitis panel negative. Blood sugars improved. Afebrile, normal WBC, preliminary blood cultures negative. EF 55-60% as per echo. Review of systems: HEENT: Denies headache or focal deficits. Denies any dizziness or lightheadedness. Respiratory: Complains of left-sided lower chest pain .Denies any increased shortness of breath. Denies TB exposure. Cardiac: Denies any chest pain, palpitations. GI: Denies any nausea, vomiting, or diarrhea. Complains of worsening left upper quadrant abdominal pain, states it has been present for 6 months. Denies weight loss. : Denies any dysuria. Denies any frequency or urgency. Psychiatry: Denies any anxiety or depression. Active Medications Acetaminophen (Tylenol Tab) 650 mg PO Q6HR PRN PRN Reason: Mild Pain or Fever > 100.5 Last Admin: 07/22/16 07:39 Dose: 650 mg Hydrocodone Bitart/Acetaminophen ([place] 5-325) 1 each PO Q4HR PRN PRN Reason: Moderate Pain Lisinopril/HCTZ (Zestoretic 10-12.5) 1 each PO DAILY TRAN Last Admin: 07/22/16 07:40 Dose: 1 each Hydromorphone HCl (Dilaudid) 1 mg IV Q3HR PRN PRN Reason: Severe Pain Last Admin: 07/21/16 18:36 Dose: 1 mg Piperacillin/Tazobactam/ (Dextrose 3.375 gm/ IV Solution) 50 mls @ 12.5 mls/hr IVPB Q8HR TRAN Last Admin: 07/22/16 07:40 Dose: 12.5 mls/hr Vancomycin HCl 1,500 mg/ (Sodium Chloride) 250 mls @ 125 mls/hr IVPB Q8H [facility] Last Admin: 07/22/16 13:35 Dose: 125 mls/hr Insulin Detemir (Levemir) 85 unit SQ HS [facility] Last Admin: 07/21/16 17:17 Dose: 85 unit Insulin Human Lispro (Humalog) 0 unit SQ ACHS [facility] PRN Reason: Protocol Last Admin: 07/22/16 13:38 Dose: 2 unit Levothyroxine Sodium (Synthroid) 200 mcg PO DAILY@0630 [facility] Last Admin: 07/22/16 06:17 Dose: 200 mcg Linagliptin (Tradjenta) 5 mg PO DAILY [facility] Last Admin: 07/22/16 07:40 Dose: 5 mg Magnesium Hydroxide (Milk Of Magnesia) 2,400 mg PO Q24H PRN PRN Reason: Constipation Metformin HCl (Glucophage) 500 mg PO BID [facility] Last Admin: 07/22/16 07:41 Dose: Not Given Miscellaneous Information (Rx Info: Iv Contrast Was Given) 1 each MISCELLANE DAILY PRN PRN Reason: Per Protocol Stop: 07/23/16 10:45 Miscellaneous Information (Rx Info: Iv Contrast Was Given) 1 each MISCELLANE DAILY PRN PRN Reason: Per Protocol Stop: 07/23/16 17:40 Miscellaneous Information (Vancomycin Trough Due) 0 each MISCELLANE DIRECTED ONE Stop: 07/23/16 05:01 Naloxone HCl (Narcan) 0.2 mg IV Q2M PRN PRN Reason: Opioid Reversal Ondansetron HCl (Zofran) 4 mg IVP Q6HR PRN PRN Reason: Nausea And Vomiting Last Admin: 07/21/16 18:36 Dose: 4 mg Objective - Vital Signs Vital signs: Vital Signs Temp 97.1 F L 07/22/16 07:00 Pulse 65 07/22/16 08:00 Resp 18 07/22/16 08:00 BP 100/53 07/22/16 07:00 Pulse Ox 93 L 07/22/16 07:00 Intake & Output 07/21/16 07/22/16 07/22/16 18:59 06:59 18:59 Intake Total 100 Output Total 200 Balance -200 100 Weight 95.254 kg 95.254 kg Intake: Intake, IV Titration 100 Amount Levofloxacin 500Mg-D5w 100 Pmx 500 mg In Dextrose/ Water 1 100ml.bag @ 100 mls/hr IVPB Q24H [facility] Rx#: [id number] Output: Urine 200 Other: Voiding Method Toilet Toilet Toilet # Voids 1 1 2 - Exam PHYSICAL EXAM: VITAL SIGNS: As above GENERAL: [Sitting up at bedside, no acute distress] HEENT: [Pupils equal conjunctiva normal. No conjunctival pallor, oral mucosa moist] NECK: [Supple, no JVD] RESPIRATORY EFFORT:[ Normal] LUNGS: Bilateral diminished bases, no wheezes rhonchi or crackles] CARDIOVASCULAR[ regular S1-S2, no murmurs rubs or gallops, no edema] GI: [Abdomen soft, nondistended, left upper quadrant tenderness, no hepatosplenomegaly, no ascites, positive bowel sounds. No palpable masses. No guarding, no rigidity] PSYCH: [Alert and oriented -3, mood and affect normal.] NEURO: No focal deficits, moves all 4 extremities, strength and sensation grossly intact JOINTS: No active deforming arthropathy. - Labs CBC & Chem 7: 07/22/16 07:20 07/22/16 07:20 Labs: Abnormal Lab Results - Last 24 Hours (Table) 07/21/16 07/21/16 07/21/16 Range/Units 09:22 17:19 21:05 Plt Count (150-450) k/uL Glucose (74-99) mg/dL POC Glucose (mg/dL) 200 H 207 H (75-99) mg/dL Hemoglobin A1c 12.0 H (4.2-6.1) % % Saturation (20-50) % HDL Cholesterol (40-60) mg/dL Rheumatoid Factor (<12) IU/mL 07/22/16 07/22/16 07/22/16 Range/Units 02:55 07:16 07:20 Plt Count 101 L (150-450) k/uL Glucose (74-99) mg/dL POC Glucose (mg/dL) 121 H 150 H (75-99) mg/dL Hemoglobin A1c (4.2-6.1) % % Saturation (20-50) % HDL Cholesterol (40-60) mg/dL Rheumatoid Factor (<12) IU/mL 07/22/16 07/22/16 07/22/16 Range/Units 07:20 07:20 07:20 Plt Count (150-450) k/uL Glucose 150 H (74-99) mg/dL POC Glucose (mg/dL) (75-99) mg/dL Hemoglobin A1c (4.2-6.1) % % Saturation 19.8 L (20-50) % HDL Cholesterol 27 L (40-60) mg/dL Rheumatoid Factor 29 H (<12) IU/mL 07/22/16 Range/Units 12:25 Plt Count (150-450) k/uL Glucose (74-99) mg/dL POC Glucose (mg/dL) 185 H (75-99) mg/dL Hemoglobin A1c (4.2-6.1) % % Saturation (20-50) % HDL Cholesterol (40-60) mg/dL Rheumatoid Factor (<12) IU/mL Microbiology - Last 24 Hours (Table) 07/21/16 12:40 Blood Culture - Preliminary Blood No Growth after 24 hours Assessment and Plan Plan: 1. Left sided lower chest pain, possible pleurisy, possible pneumonia. CT reporting multiple pulmonary nodules suspicious groundglass appearance, possible metastasis of bilateral lung bases]. 2. [Worsening left upper quadrant abdominal pain in a patient with recent cholecystectomy, possible hepatosplenomegaly, portal hypertension, cirrhosis of undetermined etiology, pelvic and esophageal varices per CT 3. Thrombocytopenia of undetermined etiology, possibly from chronic liver cirrhosis, negative hepatitis panel]. 4. Bilateral septic emboli versus multifocal disease process possibly metastatic disease or scarring. 5. History of uterine cancer, surgery without radiation or chemotherapy]. 6. Mild extrahepatic biliary dilatation 7. Diabetes mellitus type 2 8. Hypothyroidism 9. Hypertension 10. Remote history of nicotine dependence, quit in 2013 11. Family history of pancreatic cancer, both father and brother diagnosed with and . Plan: Continue on current medication regime ,monitoring and symptomatic treatment. Maintain IV empiric antibiotics. Tumor markers, Chest CT ordered as per pulmonary related to suspicious groundglass appearance possible metastasis of bilateral lung bases. Pulmonary discussing bronchoscopy with biopsies for tomorrow. Oncology consulted. GI discussing further workup of potential MRI of abdomen and pelvis. Prognosis guarded given multiple complex medical issues. Maintained supportive care. The recommendations to follow. The impression and plan of care has been dictated as directed. : I performed a H&P examination of this patient and discussed the same with the dictator. I agree with the dictator's note. Any additional findings/opinions/ etc. will be noted.
[2016-07-22 17:38] LABS: Glucose,Whole Blood 222 mg/dL (75-99)
[2016-07-22] MEDS ORDERED: ALPRAZolam 0.25 MG TAB PO PRN (21:26)
[2016-07-22 21:29] LABS: Glucose,Whole Blood 260 mg/dL (75-99)
[2016-07-22] MEDS: INSULIN DETEMIR 100 UNIT/ML 10 ML VIAL SQ SCH (22:01)
[2016-07-23] MEDS: PIPERACILLIN-TAZOBACTAM 3.375 GM in DEXTROSE/WATER 1 50ML.BAG IVPB SCH ×3 (01:41→16:02)
[2016-07-23] MEDS ORDERED: VANCOMYCIN TROUGH DUE 1 EACH MISC MISCELLANE ONE (05:00)
--- NOTE | 2016-07-23 05:29 | PN ---
DATE OF SERVICE: 07/22/2016 This 51-year-old woman who was admitted with significant respiratory findings is being evaluated for possible metastasis and possible nodular lesions. Dr. Olivas is planning a bronchoscopy. Seen and evaluated the patient along with the nurse practitioner. Please refer to nurse practitioner notes and impression documented for further information. Patient apparently also had cirrhosis of the liver also. Further recommendations to follow.
[2016-07-23 05:54] LABS: Anion Gap 10 mmol/L; Blood Urea Nitrogen 13 mg/dL (7-17); Calcium 9.3 mg/dL (8.4-10.2); Carbon Dioxide 28 mmol/L (22-30); Chloride 103 mmol/L (98-107); Glucose 164 mg/dL (74-99); Non-African American GFR(MDRD) >60 (>60 ml/min/1.73 sqM); Potassium 3.8 mmol/L (3.5-5.1); Sodium 141 mmol/L (137-145)
[2016-07-23 06:01] LABS: Basophils % (A) 0 %; CH 31.4; CHCM 34.2; Eosinophils % (A) 1 %; HCT 41.1 % (34.0-46.0); HDW 3.11; HGB 14.2 gm/dL (11.4-16.0); Luc # (Auto) 0.09; Luc % (Auto) 2; Lymphocytes # (A) 1.1 k/uL (1.0-4.8); Lymphocytes % (A) 29 %; MCHC 34.7 g/dL (31.0-37.0); MCV 92.3 fL (80.0-100.0); Mean Platelet Volume 7.7; Monocytes # (A) 0.2 k/uL (0-1.0); Monocytes % (A) 5 %; Neutrophils # (A) 2.4 k/uL (1.3-7.7); Neutrophils % (A) 63 %; RBC 4.45 m/uL (3.80-5.40); RDW 13.9 % (11.5-15.5); WBC 3.8 k/uL (3.8-10.6); WBC (Perox) 3.79
[2016-07-23] MEDS: VANCOMYCIN 1,500 MG in SODIUM CHLORIDE 0.9% 250 ML IVPB SCH ×2 (06:03→15:17)
[2016-07-23 06:06] LABS: Manual Review Performed
[2016-07-23 07:25] LABS: Glucose,Whole Blood 140 mg/dL (75-99)
[2016-07-23 07:42] LABS: ANA w/Reflex to Titer POSITIVE (NEGATIVE)
[2016-07-23] MEDS: LINAGLIPTIN 5 MG TABLET PO SCH (08:50)
[2016-07-23] MEDS: INSULIN LISPRO (humaLOG) 300 UNIT/3 ML VIAL SQ SCH ×2 (08:50→12:57)
[2016-07-23] MEDS: LEVOTHYROXINE 100 MCG TAB PO SCH (08:50)
[2016-07-23] MEDS: metFORMIN 500 MG TAB PO SCH (08:50)
[2016-07-23] MEDS: LISINOPRIL-HCTZ 10-12.5 MG 1 EACH TAB PO SCH (08:52)
--- NOTE | 2016-07-23 10:45 | P.PN ---
Subjective Principal diagnosis: Abdominal pain 51-year-old female history of an carcinoma evaluated yesterday in regards to abdominal pain and biochemical radiographic evidence suggestive of hepatosplenomegaly/cirrhosis. Patient is undergoing bronchoscopy today or evaluation of groundglass opacities seen on CT. Feels well. PATY positive. Rheumatoid factor 29. Hepatitis panel negative. AFP less than 1.3. Tushar ( angiotensin converting enzyme) 4. CA-19-9 35.3. CEA 125 7.0. CEA 3.3. Objective - Vital Signs Vital signs: Vital Signs Temp 97.9 F 07/23/16 07:00 Pulse 62 07/23/16 07:00 Resp 18 07/23/16 07:00 BP 115/56 07/23/16 07:00 Pulse Ox 91 L 07/23/16 07:00 Intake & Output 07/22/16 07/23/16 07/23/16 18:59 06:59 18:59 Intake Total 500 Output Total 200 Balance -200 500 Weight 95.254 kg Intake: Oral 500 Output: Urine 200 Other: Voiding Method Toilet # Voids 2 1 - Exam General appearance: The patient is alert, oriented, in no acute distress. HET: Head is normocephalic and atraumatic. Pupils are equal and reactive. Oropharynx is clear without lesions. Neck: Supple without lymphadenopathy. Trachea midline. Heart: S1 S2. Regular rate and rhythm. Lungs: No crackles or wheezes are heard. Abdomen: Soft, mild tenderness left upper quadrant, nondistended with bowel sounds. No peritoneal signs. No palpable organomegaly or masses. Extremities: Normal skin color and turgor. No cyanosis, rash, ulceration, clubbing, or edema. Radial and pedal pulses are 2/4 bilaterally. Neurological: No focal deficits. Strength and sensation are grossly intact. - Labs CBC & Chem 7: 07/23/16 05:22 07/23/16 05:22 Labs: Abnormal Lab Results - Last 24 Hours (Table) 07/21/16 07/21/16 07/22/16 Range/Units 09:00 18:45 07:20 Plt Count (150-450) k/uL Glucose (74-99) mg/dL POC Glucose (mg/dL) (75-99) mg/dL % Saturation 19.8 L (20-50) % Angiotensin Convert Enz (8-52) U/L CA 19-9 Antigen 35.3 H (0.0-34.9) U/mL Rheumatoid Factor (<12) IU/mL PATY Screen POSITIVE H (NEGATIVE) 07/22/16 07/22/16 07/22/16 Range/Units 07:20 07:20 12:25 Plt Count (150-450) k/uL Glucose (74-99) mg/dL POC Glucose (mg/dL) 185 H (75-99) mg/dL % Saturation (20-50) % Angiotensin Convert Enz 4 L (8-52) U/L CA 19-9 Antigen (0.0-34.9) U/mL Rheumatoid Factor 29 H (<12) IU/mL PATY Screen (NEGATIVE) 07/22/16 07/22/16 07/23/16 Range/Units 17:25 21:22 05:22 Plt Count 91 L (150-450) k/uL Glucose (74-99) mg/dL POC Glucose (mg/dL) 222 H 260 H (75-99) mg/dL % Saturation (20-50) % Angiotensin Convert Enz (8-52) U/L CA 19-9 Antigen (0.0-34.9) U/mL Rheumatoid Factor (<12) IU/mL PATY Screen (NEGATIVE) 07/23/16 07/23/16 Range/Units 05:22 07:02 Plt Count (150-450) k/uL Glucose 164 H (74-99) mg/dL POC Glucose (mg/dL) 140 H (75-99) mg/dL % Saturation (20-50) % Angiotensin Convert Enz (8-52) U/L CA 19-9 Antigen (0.0-34.9) U/mL Rheumatoid Factor (<12) IU/mL PATY Screen (NEGATIVE) Microbiology - Last 24 Hours (Table) 07/21/16 12:40 Blood Culture - Preliminary Blood No Growth after 24 hours Assessment and Plan (1) Cirrhosis Narrative/Plan: 51-year-old female presents with left upper quadrant abdominal pain with history of cholecystectomy and biochemical radiographic imaging suggested of cirrhosis. Etiology of suspected cirrhosis is unclear at this time possible NAFLD secondary to history of diabetes, hypertension, obesity and hyperlipidemia. History of uterine carcinoma metastatic disease cannot be excluded per CT imaging. 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 Bronchoscopy scheduled today. 2. Serologic workup for underlying autoimmune liver disease still in progress. Mild elevation of CA-19-9 is nonspecific with no obvious pancreatic pathology on CT imaging. 3. Oncology evaluation. 4. Discharge per medicine follow up in GI office in 1 week for reevaluation. Assessment and plan of care discussed with Dr. Gregory.
[2016-07-23] MEDS ORDERED: IV FLUID CONTINUATION 1,000 ML IV ONE (11:24)
[2016-07-23 12:03] LABS: Glucose,Whole Blood 136 mg/dL (75-99)
[2016-07-23] MEDS ORDERED: DEXAMETHASONE SOD PHOSPHATE 10 MG/ML 1 ML VIAL IV ONE (12:23)
[2016-07-23] MEDS ORDERED: ONDANSETRON 4 MG/2 ML VIAL IVP ONE (12:23)
[2016-07-23] MEDS ORDERED: LIDOCAINE 1% 20 ML VIAL (10MG/ML) FOR IV START INTRADERMA ONE (12:26)
[2016-07-23] MEDS ORDERED: SODIUM CHLORIDE 0.9% 1,000 ML IV ONE (12:26)
[2016-07-23] MEDS ORDERED: ALBUTEROL INHALER 60 PUFF/8 GM INHALER INHALATION ONE (12:51)
[2016-07-23] MEDS ORDERED: PROPOFOL 10 MG/ML 20 ML VIAL IV ONE (12:51)
[2016-07-23] MEDS ORDERED: SUCCINYLCHOLINE CHLORIDE 100 MG/5 ML SYR IV ONE (12:51)
[2016-07-23] MEDS ORDERED: fentaNYL (PF) 50 MCG/ML 2 ML AMP ONE (12:51)
[2016-07-23] MEDS ORDERED: methylPREDNISolone SOD SUCCI 125 MG/2 ML VIAL ONE (12:51)
[2016-07-23] MEDS ORDERED: LIDOCAINE 1% INJ 10MG/ML (20 ML MDV) ONE (12:51)
[2016-07-23] MEDS ORDERED: MIDAZOLAM 2 MG/2 ML VIAL ONE (12:51)
--- NOTE | 2016-07-23 13:02 | P.PN ---
Subjective This is a 51-year-old female patient with previous history of uterine carcinoma status post hysterectomy 2009 not followed by any further treatment, along with history of thyroid nodule status post thyroidectomy was also involved in a recent cholecystectomy for chronic cholecystitis. The patient underwent her surgery approximately 2 weeks ago without any major complications and was discharged home. The patient came back to the office with some pain in the left upper quadrant/left lower chest area. She is very much concerned knowing that her brother and father were diagnosed and ultimately from pancreatic cancer. For that reason she presented to the hospital and part of further workup a CAT scan of the abdomen and pelvis was done that showed hepatosplenomegaly with a low-density livers favoring cirrhosis with portal hypertension as well as pelvic varices along the distal esophageal wall. There were also nodules some of them will groundglass and other ones were a bit more dense there is blood in lung bases and this raises the suspicion for metastatic disease and even the possibility of septic emboli was entertained. The patient is postcholecystectomy. No evidence of any significant extrahepatic balloon dilatation. The pancreas was within normal limits. Spleen was enlarged and there was splenomegaly measuring 17 cm in size. No adrenal lesions. There were a few simple appearing cyst in the upper pole of the right kidney. There was no suspicious small or large bowel lesions. I was asked to evaluate this patient based on his abnormalities. I ordered a CAT scan of the chest with contrast and the CAT scan showed multiple groundglass nodules scattered throughout the lung forman bilaterally. There was also cardiomegaly and a small hiatal hernia. There was also dilatation of the distal common bile duct. As far as the lung findings, there are innumerable groundglass nodules bilaterally without any significant mediastinal lymphadenopathy. Clinically the patient is having less pain on today's evaluation. No chest pain. No cough or sputum production. No hemoptysis. No fever chills or night sweats. No pleurisy. No recent pneumonias. 10 ex-smoker and she quit smoking back in 2013. She has undergone no previous colonoscopy. She claims that her mammogram was no more than 20 years ago and was negative. She has some baseline thrombocytopenia probably later to chronic liver disease. She is nonalcoholic. No weight loss. No other constitutional symptoms. No personal or family history of sarcoidosis. No previous history of TB exposure. On 07/23/2016 the patient remains essentially the same. No new complaints. No significant chest pain. No hemoptysis. The blood work showed a positive PATY, rheumatoid factor is negative and the rest of the tumor markers are still pending for now. We are set to proceed with a bronchoscopy and operating room under general anesthesia. Would perform transbronchial biopsies in addition. Objective - Vital Signs Vital signs: Vital Signs Temp 97.7 F 07/23/16 11:26 Pulse 79 07/23/16 11:26 Resp 16 07/23/16 11:26 BP 116/80 07/23/16 11:26 Pulse Ox 94 L 07/23/16 11:26 Intake & Output 07/22/16 07/23/16 07/23/16 18:59 06:59 18:59 Intake Total 500 500 Output Total 200 Balance -200 500 500 Weight 95.254 kg Intake: IV 500 Oral 500 Output: Urine 200 Other: Voiding Method Toilet # Voids 2 1 1 - Exam Obese, comfortable not in distress.Head exam was generally normal. There was no scleral icterus or corneal arcus. Mucous membranes were moist.Neck was supple and without jugular venous distension, thyromegaly, or carotid bruits. Carotids were easily palpable bilaterally. There was no adenopathy. Patient has significant crowding of the posterior oropharynx. There is no liver adenopathy in the neck area. Lung sounds are diminished bilaterally with clear.Cardiac exam revealed the PMI to be normally situated and sized. The rhythm was regular and no extrasystoles were noted during several minutes of auscultation. The first and second heart sounds were normal and physiologic splitting of the second heart sound was noted. There were no murmurs, rubs, clicks, or gallops.Abdominal exam revealed normal bowel sounds. The abdomen was soft, non- tender, and without masses, organomegaly, or appreciable enlargement of the abdominal aorta. Patient is obese and orders cannot be accurately palpated.Examination of the extremities revealed easily palpable radial, femoral and pedal pulses. There was no cyanosis, clubbing or edema. - Labs CBC & Chem 7: 07/23/16 05:22 07/23/16 05:22 Labs: Abnormal Lab Results - Last 24 Hours (Table) 07/21/16 07/21/16 07/22/16 Range/Units 09:00 18:45 07:20 Plt Count (150-450) k/uL Glucose (74-99) mg/dL POC Glucose (mg/dL) (75-99) mg/dL Angiotensin Convert Enz (8-52) U/L CA 19-9 Antigen 35.3 H (0.0-34.9) U/mL Rheumatoid Factor 29 H (<12) IU/mL PATY Screen POSITIVE H (NEGATIVE) 07/22/16 07/22/16 07/22/16 Range/Units 07:20 12:25 17:25 Plt Count (150-450) k/uL Glucose (74-99) mg/dL POC Glucose (mg/dL) 185 H 222 H (75-99) mg/dL Angiotensin Convert Enz 4 L (8-52) U/L CA 19-9 Antigen (0.0-34.9) U/mL Rheumatoid Factor (<12) IU/mL PATY Screen (NEGATIVE) 07/22/16 07/23/16 07/23/16 Range/Units 21:22 05:22 05:22 Plt Count 91 L (150-450) k/uL Glucose 164 H (74-99) mg/dL POC Glucose (mg/dL) 260 H (75-99) mg/dL Angiotensin Convert Enz (8-52) U/L CA 19-9 Antigen (0.0-34.9) U/mL Rheumatoid Factor (<12) IU/mL PATY Screen (NEGATIVE) 07/23/16 07/23/16 Range/Units 07:02 11:48 Plt Count (150-450) k/uL Glucose (74-99) mg/dL POC Glucose (mg/dL) 140 H 136 H (75-99) mg/dL Angiotensin Convert Enz (8-52) U/L CA 19-9 Antigen (0.0-34.9) U/mL Rheumatoid Factor (<12) IU/mL PATY Screen (NEGATIVE) Microbiology - Last 24 Hours (Table) 07/21/16 12:40 Blood Culture - Preliminary Blood No Growth after 24 hours Assessment and Plan Plan: Assessment 1 multiple innumerable pulmonary nodules that have groundglass characteristics, not quite solid, suspicious however for an underlying malignancy which could be potentially metastatic at this point. The primary source is not clear to me at this point as the patient does not have any clear indication for any underlying primary malignancy. She has a remote history of uterine cancer for which she has undergone a hysterectomy. Septic emboli is felt to be less likely especially the that the patient is not septic looking and echocardiogram at shown no valvular vegetation. Sarcoidosis another consideration. TB and fungal infections are less likely possibilities. 2 left lower chest/left upper quadrant pain, currently under investigation 3 status cholecystectomy for chronic cholecystitis 4 mild dilatation of the distal common bile duct without any symptoms 5 obesity 6 uterine cancer with a previous hysterectomy 7 diabetes mellitus 8 previous thyroidectomy for thyroid nodules 9 liver cirrhosis based on radiographic findings. The chronic thrombocytopenia may be also another manifestations of chronic liver cirrhosis. The patient nonalcoholic. Hepatitis profile is negative. 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 Plan Clinically the patient is unchanged. She is doing the same. We'll proceed with bronchoscopy and bronchial lavage and transbronchial biopsies. Tumor markers are pending. If everything is stable post bronchoscopy the patient can be also discharged home to be followed up on outpatient basis to discuss the results and further treatment plan.
[2016-07-23] MEDS ORDERED: methylPREDNISolone SOD SUCCI 125 MG/2 ML VIAL IV STA (13:39)
--- NOTE | 2016-07-23 13:39 | P.PCN ---
Date of Procedure: 07/23/16 Preoperative Diagnosis: Bilateral pulmonary groundglass nodules Postoperative Diagnosis: Same Procedure(s) Performed: Flexible bronchoscopy, transbronchial biopsy, bronchioloalveolar lavage Implants: Anesthesia: CARRIEA Surgeon: Robin Olivas Electric Motor Tester Assembler #1: Maris Porter Estimated Blood Loss (ml): 10 Pathology: other Condition: stable Disposition: floor Indications for Procedure: Bilateral pulmonary nodules Operative Findings: A 51-year-old female patient was brought in to the operating room to have a bronchoscopy. The patient was induced and then intubated by DIETITIAN. The patient was given propofol. After adequate intubation oxygenation mechanical ventilation through mechanical ventilator, an adapter was attached and orotracheal tube and the flexible bronchoscope was advanced into the lower trachea. The tip of the ET tube was seen around 2 cm above the shira. The distal trachea and the shira was sharp in the midline. Bilateral mainstem bronchi were patent and within normal limits. There was mention was completed and the visualized airways included the right upper lobe bronchus bronchus intermedius, right middle lobe bronchus, right lower lobe bronchus, left upper lobe bronchus, left lower lobe bronchussegments. All of this and was taken within normal limits. No endobronchial tumors. No specific lesions identified. The bronchoscope was then moved to the right middle lobe and the bronchioloalveolar lavage of the right middle lobe was done. A total of 80 mL of fluid was infused and around 25 mL was suctioned back. Similarly a bronchial lavage of the lingula was done. A total of 60 mL of fluid was infused and 53 mL was suctioned back. Following that, bronchoscope was moved to the right lung and transplant biopsies of the right upper lobe anterior segment and apical segment was done under fluoroscopic guidance. I also did transfer her biopsies of the anterior segment of the right lower lobe. This was blind biopsies yet guided by fluoroscopy. There was some endobronchial bleeding encountered from the right upper lobe bronchus following the biopsy. Total amount of bleed was approximately 10 mL. The bleeding was controlled locally by wedging the involved segment. While undergoing the procedure, the patient went into severe bronchospasm wheezing. I was told by the DIETITIAN that she was having difficulties in ventilating the patient. There was elevated airway pressures in the volume return was not considerably high. On examination she was actively bronchospastic and wheezy and she was coughing frequently. I decided to terminate the procedure and a fluoroscopic evaluation of the lungs showed no evidence of any pneumothorax. I cleaned the airway from any residual bloody secretions and I removed the bronchoscope. Subsequently the patient's condition improved. Breath sounds improved bilaterally after the patient was given albuterol and operating room. Ultimately the patient was weaned off and she was extubated and transferred to the recovery. I'm going to recommend giving this patient IV Solu-Medrol for an underlying post this procedure bronchospasm wheezing. She'll be also given a DuoNeb nebulized treatments around the clock. Chest x-ray we obtained. If stable, she'll go back to her room and possibly home today. A total of 6 transbronchial biopsies were obtained. Bronchioloalveolar lavage of the lingula and the right middle lobe was also obtained. Airway inspection was essentially negative. Description of Procedure:
[2016-07-23] MEDS ORDERED: ALBUTEROL NEBULIZED 2.5 MG/3 ML INHALATION ONE (13:45)
--- NOTE | 2016-07-23 13:46 | FL ---
EXAMINATION TYPE: FL bronchoscopy DATE OF EXAM: 07/23/2016 CLINICAL HISTORY: RUL mass. TECHNIQUE: Fluoroscopy. COMPARISON: None. FINDINGS: Fluoroscopic guidance was provided during RUL bronchoscopy and biopsy procedure performed by Dr. Olivas. A total of 21 seconds of fluoroscopic time was utilized during the procedure and 1 spot image is acquired. Imaging acquired from RUL bronchoscopy and biopsy is saved. IMPRESSION: As Above.
--- NOTE | 2016-07-23 13:58 | XR ---
EXAMINATION TYPE: XR chest 1V portable DATE OF EXAM: 07/23/2016 CLINICAL HISTORY: Post bronchoscopy and biopsy TECHNIQUE: Single AP portable upright view of the chest is obtained. COMPARISON: Chest CT from one day earlier FINDINGS: There is persistent multifocal groundglass nodular opacities. No pleural effusion or pneum othorax is seen bilaterally after bronchoscopy and biopsy. Cardiac silhouette size is mildly enlarged . Underlying scoliosis is present. IMPRESSION: No evidence of pneumothorax after bronchoscopy and biopsy.
[2016-07-23 14:21] LABS: Glucose,Whole Blood 183 mg/dL (75-99)
[2016-07-23 15:50] VITALS: BP 112/55; RESP 20; TEMP 96.6
[2016-07-23 15:58] VITALS: PULSE 88
[2016-07-23] MEDS ORDERED: IPRATROPIUM-ALBUTEROL 3 ML NEB INHALATION SCH (16:00)
--- NOTE | 2016-07-23 16:21 | P.CONS ---
History of Present Illness - Reason for Consult Consult date: 07/23/16 Hx cancer, pulmonary nodules Requesting physician: Avani Amaya - Chief Complaint abd pain - History of Present Illness Ms. Aguirre is a very pleasant female pt who we have been asked to see in consult for suspicious findings on lung imaging. Pt has a history of early stage uterine malignancy diagnosed in 2008, treated with surgery, she did not require adjuvant treatments. She had had abd discomfort, nausea and vomiting for a few days, persistent, she was getting weaker and was unable to tolerate much oral intake so she was brought to the ER. She denies fevers, sweats, unintentional wt. loss, appetite was decent up until a few weeks ago, no chest pain, her abd is tender in upper quadrants, RUQ>LUQ, no dysuria, hematuria, diarrhea or vaginal discharge. Review of Systems All systems: negative Constitutional: Reports as per HPI Past Medical History Past Medical History: Cancer, Diabetes Mellitus, Hypertension, Thyroid Disorder Additional Past Medical History / Comment(s): HX OF UTERINE CANCER, ANEMIA, HX OF THYROID NODULES., STATES DIFFICULTY GETTING BLOOD SUGAR UNDER CONTROL - TO SEE [employer]ABBLE FURNACE TENDER., STATES NAUSEA AND VOMITING AND PAIN FROM GALL BLADDER. History of Any Multi-Drug Resistant Organisms: None Reported Past Surgical History: Cholecystectomy, Hysterectomy Additional Past Surgical History / Comment(s): THYROID, CYST ON BACK, MOLE ABOVE RIGHT EAR, LASIK EYE SURGERY. Past Anesthesia/Blood Transfusion Reactions: No Reported Reaction Past Psychological History: No Psychological Hx Reported Smoking Status: Former smoker Past Alcohol Use History: Rare Additional Past Alcohol Use History / Comment(s): SMOKED 1/2 -1 PPD FOR APPROX 30 YEARS. QUIT SMOKING JULY 2013. Past Drug Use History: None Reported - Past Family History Father Family Medical History: Cancer Additional Family Medical History / Comment(s): PANCREATIC CANCER Brother(s) Family Medical History: Cancer, Pulmonary Embolus Additional Family Medical History / Comment(s): PANCREATIC CANCER Medications and Allergies Home Medications Medication Instructions Recorded Confirmed Type Acetaminophen Tab [Tylenol] 650 mg PO Q4-6H PRN 04/10/16 07/21/16 History INSULIN LISPRO (HumaLOG) [humaLOG] See Protocol SQ BID PRN 04/10/16 07/21/16 History Pnv,Calcium 72/Iron/Folic Acid 1 tab PO DAILY 04/10/16 07/21/16 History [ Plus Tablet] sitaGLIPtin PHOS/metFORMIN HCL 1 tab PO BID 04/10/16 07/21/16 History [Janumet 50-500 mg Tablet] Levothyroxine Sodium [Synthroid] 200 mcg PO DAILY 04/14/16 07/21/16 History Lisinopril-Hctz 10-12.5 mg 1 tab PO DAILY 04/14/16 07/21/16 History [Zestoretic 10-12.5] Magnesium Hydroxide [Milk of 2,400 mg PO Q24H PRN 07/21/16 07/21/16 History Magnesia] Allergies Allergy/AdvReac Type Severity Reaction Status Date / Time No Known Allergies Allergy Verified 07/23/16 11:25 Physical Exam Vitals: Vital Signs Temp Pulse Pulse Pulse Pulse Resp BP 07/23/16 16:03 88 07/23/16 15:53 88 07/23/16 15:00 96.6 F L 82 20 07/23/16 14:21 90 16 07/23/16 14:05 80 16 07/23/16 13:50 90 16 07/23/16 13:35 96.8 F L 99 16 07/23/16 11:26 97.7 F 79 16 116/80 07/23/16 07:00 97.9 F 62 18 07/22/16 23:00 97.6 F 81 20 BP BP Pulse Ox 07/23/16 16:03 07/23/16 15:53 07/23/16 15:00 112/55 94 L 07/23/16 14:21 135/72 92 L 07/23/16 14:05 137/84 94 L 07/23/16 13:50 137/82 98 07/23/16 13:35 142/88 98 07/23/16 11:26 94 L 07/23/16 07:00 115/56 91 L 07/22/16 23:00 98/54 95 Intake and Output 07/23/16 07/23/16 07/23/16 06:59 14:59 22:59 Intake Total 100 1050 Balance 100 1050 Intake: IV 1050 Oral 100 Other: # Voids 1 1 2 - Constitutional General appearance: cooperative, no acute distress, obese - EENT Eyes: anicteric sclerae, PERRLA, normal appearance ENT: hearing grossly normal, normal oropharynx - Neck Neck: no lymphadenopathy - Respiratory Respiratory: bilateral: CTA - Cardiovascular Rhythm: regular Heart sounds: normal: S1, S2 leg Peripheral Edema: bilateral: None - Gastrointestinal General gastrointestinal: no absent bowel sounds, no decreased bowel sounds, no distended, no hepatomegaly, no hyperactive bowel sounds, normal bowel sounds, no organomegaly, no rigid, no scaphoid, soft, no splenomegaly, tenderness, no umbilical hernia, no ventral hernia - Integumentary Integumentary: normal - Neurologic Neurologic: CNII-XII intact - Musculoskeletal Musculoskeletal: strength equal bilaterally - Psychiatric Psychiatric: A&O x's 3, appropriate affect, intact judgment & insight Results CBC & Chem 7: 07/23/16 05:22 07/23/16 05:22 Labs: Abnormal Lab Results - Last 24 Hours (Table) 07/21/16 07/21/16 07/22/16 Range/Units 09:00 18:45 07:20 Plt Count (150-450) k/uL Glucose (74-99) mg/dL POC Glucose (mg/dL) (75-99) mg/dL Angiotensin Convert Enz 4 L (8-52) U/L CA 19-9 Antigen 35.3 H (0.0-34.9) U/mL PATY Screen POSITIVE H (NEGATIVE) 07/22/16 07/22/16 07/23/16 Range/Units 17:25 21:22 05:22 Plt Count 91 L (150-450) k/uL Glucose (74-99) mg/dL POC Glucose (mg/dL) 222 H 260 H (75-99) mg/dL Angiotensin Convert Enz (8-52) U/L CA 19-9 Antigen (0.0-34.9) U/mL PATY Screen (NEGATIVE) 07/23/16 07/23/16 07/23/16 Range/Units 05:22 07:02 11:48 Plt Count (150-450) k/uL Glucose 164 H (74-99) mg/dL POC Glucose (mg/dL) 140 H 136 H (75-99) mg/dL Angiotensin Convert Enz (8-52) U/L CA 19-9 Antigen (0.0-34.9) U/mL PATY Screen (NEGATIVE) 07/23/16 Range/Units 14:18 Plt Count (150-450) k/uL Glucose (74-99) mg/dL POC Glucose (mg/dL) 183 H (75-99) mg/dL Angiotensin Convert Enz (8-52) U/L CA 19-9 Antigen (0.0-34.9) U/mL PATY Screen (NEGATIVE) Microbiology - Last 24 Hours (Table) 07/21/16 12:40 Blood Culture - Preliminary Blood No Growth after [address] scan - abdomen: report reviewed CT scan - chest: report reviewed CT scan - pelvis: report reviewed Assessment and Plan (1) Ground glass opacity present on imaging of lung Narrative/Plan: It is highly unlikely that an early stage uterine cancer would present with mets to the lungs 8 years later but it is in the differential as well as new primary or non-malignant cause. Bronch and biopsy are scheduled. Pt can f/u with Dr. Grimaldo if biopsy proves to be malignant. Status: Acute (2) Uterine carcinoma Narrative/Plan: Pt diagnosis was in 2008, treated surgically, was early stage and required no adjuvant chemo or radiation. Status: Chronic Plan: Dr. Grimaldo requested portal/splenic vein doppler to evaluate for possible thrombosis as cause for pt abd symptoms and abnormal findings of the liver and spleen on imaging, awaiting results
[2016-07-23 20:01] LABS: RBC, Body Fluid 38 /uL
[2016-07-23 20:19] LABS: RBC, Body Fluid 63 /uL
--- NOTE | 2016-07-24 17:38 | DS ---
DATE OF ADMISSION: 07/22/2016 DATE OF DISCHARGE: 07/23/2016 FINAL DIAGNOSES: 1. Left-sided lower chest pain; possible pleurisy; possible pneumonia. CT showing possible pneumonia, possibly Gram-negative. 2. CT report of multiple pulmonary nodules with ground-glass appearance, possible metastatic, bilateral lung bases. 3. Worsening left upper quadrant abdominal pain with recent cholecystectomy. 4. Hepatosplenomegaly, portal hypertension, cirrhosis of undetermined etiology. 5. Pelvic and esophageal varices per CT scan. 6. Thrombocytopenia of undetermined etiology, possibly chronic liver disease. 7. Negative hepatitis panel. 8. Bilateral septic emboli versus multi-focal disease, possibly metastatic disease from scarring on the CT scan. 9. History of uterine cancer surgery without radiation or chemo. 10. Mild extrahepatic biliary dilatation. 11. Diabetes mellitus, type 2. 12. Hypothyroidism. 13. Hypertension. 14. Remote history of nicotine dependence; quit in 2013. 15. Family history of pancreatic cancer. DISCHARGE DISPOSITION: The patient will be discharged in stable condition with guarded prognosis. Discharge cleared by multiple consultants. HISTORY OF PRESENT ILLNESS: This 51-year-old woman who presented with the multiple complex medical issues was admitted with chest pain, was treated empirically pneumonia. The patient also had multiple lung lesions. Dr. Olivas performed bronchoscopy and biopsy. Reports are pending at this time. On exam, vitals are stable. CARDIOVASCULAR SYSTEM: S1, S2 muffled. ABDOMEN: Soft. NERVOUS SYSTEM: No focal deficit. Recommend close followup with Gastroenterology. DISCHARGE ADVICE AND MEDICATIONS: 1. Diet is cardiac. 2. Activity limited until followup. 3. Follow up with primary physician in 2 to 3 days. 4. Follow up with Dr. Souza and Dr. Olivas as recommended. 5. Tylenol 650 q.4 p.r.n. 6. Xanax 0.25 t.i.d. p.r.n. 7. Augmentin 875 mg p.o. b.i.d. for 5 days. 8. [place] 5 mg q.6 p.r.n. 9. Lantus 80 units subcutaneously at bedtime. 10. Humalog scale as before. 11. Synthroid 200 mcg p.o. daily. 12. Lisinopril/hydrochlorothiazide 10/12.5 mg p.o. daily. 13. Magnesium 2.4 grams p.r.n. 14. Calcium, vitamins 1 p.o. daily. 15. Sitagliptin/metformin 1 tablet p.o. b.i.d. Once again, the patient will be discharged in stable condition with guarded prognosis. MTDD
--- NOTE | 2016-07-30 11:59 | CDI ---
In responding to this query, please exercise your independent professional judgment. The [facility] Coding Staff and Clinical Documentation Specialists appreciate your assistance in clarifying documentation, maintaining compliance with coding guidelines, accurately documenting patients condition and capturing severity of illness. The fact that a question is asked does not imply that any particular answer is desired or expected. Communication forms are a method of clarifying documentation and are not made part of the Legal Health Record. Thank you in advance for your clarification. Last Revision, December 2014 Case Melo [id number] [place] [address] Documentation Clarification Form Date: 07/30/2016 11:19:00 AM From: Alva Echols Admit Date: 07/22/2016 11:18:00 AM Patient Name: Sivan Aguirre Visit Number: [id number] Discharge Date: Dr. Oracio Anderson Conflicting documentation has been found in the medical record. On 07/21/2016 H&P and progress notes: Bilateral septic emboli versus multifocal disease process possibly metastatic disease or scarring. History/Risk Factors: Nicotine dependence, Diabetes mellitus type 2, Hypertension, Uterine cancer, Pneumonia Clinical Indicators: CT scan: suspicious chronic glass nodules in bilateral lung bases, differentials include septic emboli or multifocal infectious process, metastatic disease related to known endometrial cancer cannot be excluded. Vital signs on admission: 128/70 95 16 97.8 95 % RA Labs on admission: WBC 4.7 6/817 Pathology Report: Lung, right upper lobe, transbronchial biopsy: Benign bronchial mucosa with submucosal chronic inflammation and peribronchial alveolar tissue. Right middle lobe and Lung Lingula: Reactive bronchial lining cells, macrophages , and mixed inflammatory cell. No cytologically malignant cells identified. Pulmonary consult 07/22/2016: Septic emboli is felt to be less likely especially that the patient is not septic looking and echocardiogram has shown no valvular vegetation. Sarcoidosis another consideration. Treatment: Vancomycin IV Zosyn IV Monitor Labs In your opinion what is the most clinically appropriate diagnosis for this patient? Septic emboli ruled in Septic emboli ruled out OTHER explanation of clinical findings Unable to determine (no explanation for clinical findings) Please document as an addendum to your discharge summary in order to capture severity of illness and risk of mortality. Include clinical findings that support your diagnosis. FYI: Press F11 to launch patient chart. Place X here if this finding has no clinical significance, is not applicable or if you are not able to provide any additional documentation. MTDD
--- NOTE | 2016-08-05 20:42 | PN ---
ADDENDUM: Septic emboli, unable to determine.
== END 2016-07-23 16:35 | disposition home or self-care (01) | DRG 166 ==
LOC: EC 08:44 → INTOOBSV 14:50 → 4MS4W 14:50 → OBSVTOIN 07-22 11:18
PROVIDERS: ADMIT Internal Medicine; ATTEND Internal Medicine
PROC: 0B9D8ZX Drainage of Right Middle Lung Lobe, Via Natural or Artificial Opening Endoscopic, Diagnostic (ICD-10-PCS; 2016-07-23)
PROC: 0BBF8ZX Excision of Right Lower Lung Lobe, Via Natural or Artificial Opening Endoscopic, Diagnostic (ICD-10-PCS; principal; 2016-07-23 12:00)
PROC: 0BBC8ZX Excision of Right Upper Lung Lobe, Via Natural or Artificial Opening Endoscopic, Diagnostic (ICD-10-PCS; 2016-07-23 12:00)
DX: J15.6 Pneumonia due to other Gram-negative bacteria (principal); I26.90 Septic pulmonary embolism without acute cor pulmonale; I76 Septic arterial embolism; K76.6 Portal hypertension; I85.00 Esophageal varices without bleeding; D69.6 Thrombocytopenia, unspecified; R16.2 Hepatomegaly with splenomegaly, not elsewhere classified; K74.60 Unspecified cirrhosis of liver; R09.1 Pleurisy; E89.0 Postprocedural hypothyroidism; E11.9 Type 2 diabetes mellitus without complications; E66.9 Obesity, unspecified; E78.5 Hyperlipidemia, unspecified; I51.7 Cardiomegaly; I86.2 Pelvic varices; J98.01 Acute bronchospasm; K44.9 Diaphragmatic hernia without obstruction or gangrene; I10 Essential (primary) hypertension; R91.8 Other nonspecific abnormal finding of lung field; Z79.4 Long term (current) use of insulin; Z79.899 Other long term (current) drug therapy; Z85.42 Personal history of malignant neoplasm of other parts of uterus; Z87.891 Personal history of nicotine dependence
CPT/HCPCS: 31624; 31625; 36415; 71010; 71260; 74177; 80048; 80053; 80061; 80074; 80202; 81001; 81003; 82103; 82105; 82150; 82164; 82378; 82390; 82550; 82553; 82728; 83036; 83516; 83520; 83540; 83550; 83615; 83690; 83735; 84165; 84484; 85025; 85610; 85652; 86038; 86039; 86301; 86304; 86431; 87040; 87070; 87102; 87116; 87205; 87206; 87252; 87496; 87498; 87502; 87529; 87798; 88108; 88305; 89050; 93005; 93306; 94640; 96361; 96365; 96375; 96376; 99285

== ENCOUNTER → 2016-08-15 | Outpatient (CLI) | payer OTHER | LOC: RADPETMAIN 09:17 | PROVIDERS: ATTEND Internal Medicine Critical Care Medicine | DX: Z53.9 Procedure and treatment not carried out, unspecified reason (principal) ==

== ENCOUNTER → 2016-08-22 | Outpatient (CLI) | payer OTHER ==
--- NOTE | 2016-08-23 10:56 | PE ---
EXAMINATION TYPE: PET CT fusion skull to thigh DATE OF EXAM: 08/22/2016 CLINICAL HISTORY: 51-year-old female lung nodule. Patient with history of uterine cancer treated surg ically in 2008. TECHNIQUE: Following the intravenous administration of 13.93 mCi of F-18 FDG, whole body images are performed from the skull base to the midthigh. Images are reviewed on the computer in the coronal, axial, and sagittal planes. Reconstructed rotating images are created on independent workstation and reviewed on the computer. A localization and attenuation correction CT is performed in conjunction with the PET scan. Glucose level: 208 mg/dL. Despite the elevated blood sugar, decision was made to proceed as the patie nt was previously canceled due to elevated blood sugar. Patient followed the correct diet and did not take diabetic medication this morning. CTDI: 5.16 mGy DLP: 459.44 mGy-cm COMPARISON: 07/22/2016 and 07/21/2016 FINDINGS: PET: Multifocal rounded groundglass foci in a peribronchovascular and subpleural distribution. Some of the areas of groundglass appear less dense as compared to 07/22/2016. No progressive consolidation or pleu ral effusion. These do not show significant FDG uptake. Mildly enlarged portahepatic and portacaval nodes measuring up to 1.6 cm are likely reactive as these show no abnormal FDG uptake. Hypodense lesion lateral right kidney shows no FDG uptake compatible with a benign cyst. Variable segmental bowel uptake especially in the cecum/ascending colon and distal sigmoid most sugge stive of physiologic muscular activity. Sclerotic focus within the intertrochanteric region of the proximal left femur unchanged from 7 shows no abnormal uptake, likely bone island. Otherwise, physiologic FDG uptake within the neck, chest, abdomen, and pelvis. ATTENUATION CORRECTION CT: Visualized paranasal sinuses and mastoid air cells are clear. No cervical lymphadenopathy. Heart is normal size without pericardial effusion. Coronary vessel calcifications are present enterin g marker for coronary artery disease. Borderline ectasia ascending aorta at 3.6 cm. Conventional arch vessel branching anatomy. No thoracic lymphadenopathy. Redemonstrated hepatosplenomegaly. There is somewhat low attenuation of the hepatic parenchyma. Splee n measures 16.9 cm on axial series. Lower paraesophageal varices better seen on 07/21/2016 CT. Stable prominence to the bile duct. No dilated small bowel, free fluid, or free air. No mesenteric or retroperitoneal lymphadenopathy. Sc attered mild stool throughout the colon. Sigmoid diverticulosis. Improved pelvic free fluid is compared to 07/21/2016 with residual small amount of free fluid. Bladder nondistended. Pelvic phleboliths. Uterus and ovaries surgically absent. Bones: S-shaped scoliosis. IMPRESSION: 1. Numerous persisting groundglass foci in both lungs. Some of these foci appear less dense as compar ed to 07/22/2016 and there is no associated hypermetabolism. An infectious/inflammatory etiology is fav ored. Some differential considerations include interstitial pneumonitis (RADIOLOGIST CHIEF OF BREAST IMAGING), hypersensitivity pneum onitis, atypical infections, and pulmonary vasculitis. Hemorrhagic metastases considered less likely at this time given lack of FDG uptake and lack of central solid component. Three-month follow-up CT a nd further clinical correlation recommended. 2. Hepatosplenomegaly. There may be underlying fatty infiltration of the liver. Given trace pelvic as cites, reactive portahepatic and portacaval lymphadenopathy, enlargement of the portal vein and lower paraesophageal varices (better seen on 07/21/2016 CT), correlate to exclude underlying cirrhosis and p ortal venous hypertension. 3. Incidental: Sigmoid diverticulosis and scoliosis.
== END | disposition home or self-care (01) ==
LOC: RADPETMAIN 08:12
PROVIDERS: ATTEND Internal Medicine Critical Care Medicine
DX: R91.8 Other nonspecific abnormal finding of lung field (principal); R16.2 Hepatomegaly with splenomegaly, not elsewhere classified; I85.00 Esophageal varices without bleeding; R59.1 Generalized enlarged lymph nodes
CPT/HCPCS: 78815; A9552

== ENCOUNTER 2017-09-11 14:14 | Emergency (ER) | payer OTHER ==
[2017-09-11] MEDS ORDERED: SODIUM CHLORIDE 0.9% 1,000 ML IV STA (15:15)
[2017-09-11] MEDS ORDERED: methylPREDNISolone SOD SUCCI 125 MG/2 ML VIAL IM STA (15:15)
[2017-09-11] MEDS ORDERED: MORPHINE SULFATE 4 MG/ML SYRINGE IV STA (15:15)
[2017-09-11] MEDS ORDERED: KETOROLAC 30 MG/ML 1 ML VIAL IVP STA (15:15)
[2017-09-11] MEDS ORDERED: METHOCARBAMOL 500 MG TAB PO STA (15:18)
--- NOTE | 2017-09-11 15:21 | ED ---
Back Pain HPI - General Chief Complaint: Back Pain/Injury Stated Complaint: Back pain Time Seen by Provider: 09/11/17 14:43 Source: patient Limitations: no limitations - History of Present Illness Initial Comments: Patient is a 52-year-old female presenting for back pain. Patient states it is thing going on for 1 week and is located on the left lower side of her back. It is constant he sensation and she denies any trauma. She tried pain patches, Motrin, Tylenol and she has not had any resolution of symptoms. She is extremely concerned because she states that her brother and another family member both had pancreatic cancer and that her brother told her that he found out he had it because he had the same lump and pain on his back that she did. She states that she has had a 30 pound weight loss in the last 10 months as well and admits to nausea but no vomiting or diarrhea as well as belly pain. She denies any fevers/chills, chest pain/shortness breath, urinary symptoms. Patient denies any saddle anesthesia, urinary retention, bowel incontinence. - Related Data Home Medications Medication Instructions Recorded Confirmed Acetaminophen Tab [Tylenol] 650 mg PO Q4-6H PRN 04/10/16 07/21/16 INSULIN LISPRO (HumaLOG) [humaLOG] See Protocol SQ BID PRN 04/10/16 07/21/16 Pnv,Calcium 72/Iron/Folic Acid 1 tab PO DAILY 04/10/16 07/21/16 [ Plus Tablet] sitaGLIPtin PHOS/metFORMIN HCL 1 tab PO BID 04/10/16 07/21/16 [Janumet 50-500 mg Tablet] Levothyroxine Sodium [Synthroid] 200 mcg PO DAILY 04/14/16 07/21/16 Lisinopril-Hctz 10-12.5 mg 1 tab PO DAILY 04/14/16 07/21/16 [Zestoretic 10-12.5] Magnesium Hydroxide [Milk of 2,400 mg PO Q24H PRN 07/21/16 07/21/16 Magnesia] Previous Rx's Medication Instructions Recorded HYDROcodone/APAP 5-325MG [[place] 1 tab PO Q4HR PRN #25 tab 04/14/16 5-325] ALPRAZolam [Xanax] 0.25 mg PO TID PRN #20 tab 07/23/16 Amoxic-Pot Clav 875-125Mg 1 tab PO Q12HR #10 tablet 07/23/16 [Augmentin 875-125] Insulin Glargine [Lantus] 80 units SQ HS #0 07/23/16 Ibuprofen [Motrin] 400 mg PO Q6HR PRN #20 tab 09/11/17 Lidocaine 5% Patch [Lidoderm] 1 patch TOPICAL DAILY #10 patch 09/11/17 Methocarbamol [Robaxin-750] 750 mg PO TID PRN #21 tablet 09/11/17 Allergies Allergy/AdvReac Type Severity Reaction Status Date / Time No Known Allergies Allergy Verified 09/11/17 14:20 Review of Systems ROS Statement: Those systems with pertinent positive or pertinent negative responses have been documented in the HPI. Constitutional: Negative for chills, fatigue and fever. Positive for weight loss HENT: Negative for congestion. Respiratory: Negative for chest tightness, shortness of breath and wheezing. Negative for cough Cardiovascular: Negative for chest pain and palpitations. Gastrointestinal: Negative for abdominal pain. Negative for abdominal distention , diarrhea, nausea and vomiting. Genitourinary: Negative for dysuria. Musculoskeletal: Positive for back pain, negative for neck pain and neck stiffness. Skin: Negative for color change. Neurological: Negative for dizziness, speech difficulty, weakness and light- headedness. Psychiatric/Behavioral: Negative for agitation and confusion. Negative for anxiety ROS Other: All systems not noted in ROS Statement are negative. 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 History of Any Multi-Drug Resistant Organisms: None Reported Past Surgical History: Cholecystectomy, Hysterectomy Additional Past Surgical History / Comment(s): THYROID, CYST ON BACK, MOLE ABOVE RIGHT EAR, LASIK EYE SURGERY. Past Anesthesia/Blood Transfusion Reactions: No Reported Reaction Past Psychological History: No Psychological Hx Reported Smoking Status: Current every day smoker Past Alcohol Use History: Rare Past Drug Use History: None Reported - Past Family History Father Family Medical History: Cancer Additional Family Medical History / Comment(s): PANCREATIC CANCER Brother(s) Family Medical History: Cancer, Pulmonary Embolus Additional Family Medical History / Comment(s): PANCREATIC CANCER General Exam - General Exam Comments Initial Comments: Constitutional: Pt is oriented to person, place, and time. Pt appears well- developed and well-nourished. No distress. HENT: Head: Normocephalic and atraumatic. Eyes: EOM are normal. Neck: Normal range of motion. Neck supple. Cardiovascular: Normal rate, regular rhythm, S1 normal, S2 normal and normal heart sounds. Exam reveals no gallop and no friction rub. No murmur heard. Pulmonary/Chest: Effort normal and breath sounds normal. No tachypnea and no bradypnea. No respiratory distress. No wheezes or rales noted. Abdominal: Soft. Bowel sounds are normal. Pt exhibits no shifting dullness, no distension, no pulsatile liver, no fluid wave, no abdominal bruit and no ascites. There is no tenderness. There is no rigidity, no rebound, no guarding, no tenderness at McBurney's point and negative Hollins's sign. Musculoskeletal: Normal range of motion. 5 out of 5 muscle strength in the lower extremity. DTRs 2+ of patella tendons Neurological: Pt is alert and oriented to person, place, and time. No cranial nerve deficit. Skin: Skin is warm and dry. No rash noted. Pt is not diaphoretic. No erythema. No pallor. Psychiatric: Pt has a normal mood and affect. Pt behavior is normal. Thought content normal. Limitations: no limitations Course Vital Signs 09/11/17 09/11/17 09/11/17 14:18 16:30 17:50 Temperature 97.5 F L 97.8 F 98.0 F Pulse Rate 102 H 100 100 Respiratory 20 18 18 Rate Blood Pressure 111/75 118/80 116/78 O2 Sat by Pulse 95 98 98 Oximetry Medical Decision Making - Medical Decision Making Laboratories showed no evidence of significant leukocytosis and there was some evidence of possible dehydration as hemoglobin was elevated at 17.1. There is no evidence of transaminitis or pancreatitis but because the patient's concern about possible cancerous process, CT of the abdomen and spine were performed. This showed mild extrahepatic biliary duct dilatation as well as possible renal cyst and mild disc herniation at L5-S1. However, because there is no neurovascular deficits on physical exam, it was felt that the lumbar spine findings could be followed up as an outpatient basis and there is concern for cauda equina. His explained to the patient's that the symptoms that she was experiencing is likely secondary to musculoskeletal strain but that she needed close follow-up with the PCP and that her concern for pancreatic cancer could not be completely excluded based on the testing done today.Explained all labs and diagnostic test results and that we will discharge the patient home and patient is to follow up with PCP in 1-2 days and return to the ED if symptoms worsen. Pt is agreeable to plan. - Lab Data Result diagrams: 09/11/17 15:34 09/11/17 15:34 Lab Results 09/11/17 09/11/17 09/11/17 Range/Units 15:34 15:34 15:34 WBC 8.5 (3.8-10.6) k/uL RBC 5.61 H (3.80-5.40) m/uL Hgb 17.1 H (11.4-16.0) gm/dL Hct 52.5 H (34.0-46.0) % MCV 93.6 (80.0-100.0) fL MCH 30.5 (25.0-35.0) pg MCHC 32.5 (31.0-37.0) g/dL RDW 13.9 (11.5-15.5) % Plt Count 159 (150-450) k/uL Neutrophils % 69 % Lymphocytes % 25 % Monocytes % 4 % Eosinophils % 1 % Basophils % 1 % Neutrophils # 5.8 (1.3-7.7) k/uL Lymphocytes # 2.1 (1.0-4.8) k/uL Monocytes # 0.3 (0-1.0) k/uL Eosinophils # 0.1 (0-0.7) k/uL Basophils # 0.0 (0-0.2) k/uL Sodium 139 (137-145) mmol/L Potassium 4.2 (3.5-5.1) mmol/L Chloride 100 (98-107) mmol/L Carbon Dioxide 29 (22-30) mmol/L Anion Gap 10 mmol/L BUN 12 (7-17) mg/dL Creatinine 0.54 (0.52-1.04) mg/dL Est GFR (CKD-EPI)AfAm >90 (>60 ml/min/1.73 sqM) Est GFR (CKD-EPI)NonAf >90 (>60 ml/min/1.73 sqM) Glucose 205 H (74-99) mg/dL Calcium 10.1 (8.4-10.2) mg/dL Total Bilirubin 0.8 (0.2-1.3) mg/dL AST 22 (14-36) U/L ALT 28 (9-52) U/L Alkaline Phosphatase 84 (38-126) U/L Total Protein 7.7 (6.3-8.2) g/dL Albumin 4.7 (3.5-5.0) g/dL Lipase 103 (23-300) U/L Urine Color Light Yellow Urine Appearance Clear (Clear) Urine pH 5.5 (5.0-8.0) Ur Specific [place] 1.007 (1.001-1.035) Urine Protein Negative (Negative) Urine Glucose (UA) Negative (Negative) Urine Ketones Negative (Negative) Urine Blood Negative (Negative) Urine Nitrite Negative (Negative) Urine Bilirubin Negative (Negative) Urine Urobilinogen <2.0 (<2.0) mg/dL Ur Leukocyte Esterase Negative (Negative) Disposition Clinical Impression: Back pain, Renal cyst, Bulging lumbar disc Disposition: HOME SELF-CARE Condition: Good Instructions: Acute Low Back Pain (ED) Prescriptions: Ibuprofen [Motrin] 400 mg PO Q6HR PRN #20 tab PRN Reason: Pain Lidocaine 5% Patch [Lidoderm] 1 patch TOPICAL DAILY #10 patch Methocarbamol [Robaxin-750] 750 mg PO TID PRN #21 tablet PRN Reason: Pain Is patient prescribed a controlled substance at d/c from ED?: No Referrals: Karol Dorantes DO [Primary Care Provider] - 1-2 days Time of Disposition: 17:40
[2017-09-11 15:55] LABS: Appearance,Urine Clear (Clear); Basophils % (A) 1 %; Bilirubin,Urine Negative (Negative); Blood,Urine Negative (Negative); Color,Urine Light Yellow; Eosinophils # (A) 0.1 k/uL (0-0.7); Eosinophils % (A) 1 %; Glucose,Urine (UA) Negative (Negative); HCT 52.5 % (34.0-46.0); HGB 17.1 gm/dL (11.4-16.0); Ketones,Urine Negative (Negative); Leukocyte Esterase,Urine Negative (Negative); Lymphocytes # (A) 2.1 k/uL (1.0-4.8); Lymphocytes % (A) 25 %; MCH 30.5 pg (25.0-35.0); MCHC 32.5 g/dL (31.0-37.0); MCV 93.6 fL (80.0-100.0); Mean Platelet Volume 7.6; Monocytes # (A) 0.3 k/uL (0-1.0); Monocytes % (A) 4 %; Neutrophils # (A) 5.8 k/uL (1.3-7.7); Neutrophils % (A) 69 %; Nitrite,Urine Negative (Negative); PH, Urine 5.5 (5.0-8.0); Platelet Count 159 k/uL (150-450); Protein,Urine Negative (Negative); RBC 5.61 m/uL (3.80-5.40); RDW 13.9 % (11.5-15.5); Specific Gravity,Urine 1.007 (1.001-1.035); Urobilinogen,Urine <2.0 mg/dL (<2.0); WBC 8.5 k/uL (3.8-10.6)
[2017-09-11] MEDS ORDERED: methylPREDNISolone SOD SUCCI 125 MG/2 ML VIAL IV STA (15:57)
[2017-09-11 16:03] LABS: ALT 28 U/L (9-52); AST 22 U/L (14-36); Albumin 4.7 g/dL (3.5-5.0); Alkaline Phosphatase 84 U/L (38-126); Anion Gap 10 mmol/L; Blood Urea Nitrogen 12 mg/dL (7-17); Calcium 10.1 mg/dL (8.4-10.2); Carbon Dioxide 29 mmol/L (22-30); Chloride 100 mmol/L (98-107); Glucose 205 mg/dL (74-99); Lipase 103 U/L (23-300); Potassium 4.2 mmol/L (3.5-5.1); Sodium 139 mmol/L (137-145); Total Bilirubin 0.8 mg/dL (0.2-1.3); Total Protein 7.7 g/dL (6.3-8.2)
--- NOTE | 2017-09-11 16:51 | CT ---
EXAMINATION TYPE: CT abdomen pelvis wo/w con DATE OF EXAM: 09/11/2017 HISTORY: Low back pain without injury CT DLP: 1412.7mGycm Automated Exposure Control for Dose Reduction was Utilized. CONTRAST: CT scan of the abdomen and pelvis is performed with IV Contrast, patient injected with 100 mL of Isov ue 300. COMPARISON: 07/21/2016. FINDINGS: LUNG BASES: No significant abnormality is appreciated. The previously seen groundglass nodules are no longer visualized. LIVER/GB: No significant abnormality is appreciated. Gallbladder appears surgically absent and there is postsurgical dilatation of the common bile duct. This is similar to the prior. PANCREAS: No significant abnormality is seen. SPLEEN: Spleen is enlarged measuring 14.7 cm in longitudinal dimension.. ADRENALS: No significant abnormality is seen. KIDNEYS: There are subcentimeter bilateral renal lesions measuring 8 mm, 3 mm and 6 mm on the left an d 6 mm on the right in addition to a larger 1.7 cm right renal lesion. None of these lesions demonstr ate fluid attenuation on unenhanced imaging and could represent cysts with pseudoenhancement, however are incompletely characterized. These could be further assessed with ultrasound to evaluate for incr eased or transmission. No nephrolithiasis or obstructive uropathy. BOWEL: Bowel is nondilated. Few scattered colonic diverticula are seen without pericolonic fat strand ing distal esophageal varices are again identified. UTERUS/ADNEXA: Uterus again appears surgically absent. LYMPH NODES: No greater than 1cm abdominal or pelvic lymph nodes are appreciated. OSSEOUS STRUCTURES: There is redemonstration of a levoconvex scoliosis of the upper lumbar spine and moderate multilevel degenerative disc disease in the thoracolumbar spine. OTHER: Moderate calcific and noncalcific atheromatous plaquing is seen of the abdominal aorta and its branches. No aneurysmal dilatation.. IMPRESSION: 1. No evidence of nephrolithiasis or obstructive uropathy. Bilateral renal lesions are present as see n on the prior, the majority of which are too small to accurately characterize and the largest does n ot represent a simple cyst. This could represent a cyst with internal debris and could be further ass essed with ultrasound. 2. No acute intra-abdominal process identified. 3. Splenomegaly. 4. Persistent mild extrahepatic biliary ductal dilatation greater than expected after cholecystectomy . Again correlation with serum laboratory values is recommended to determine the need for ERCP/MRCP.
--- NOTE | 2017-09-11 16:55 | CT ---
EXAMINATION TYPE: CT lumbar spine w con DATE OF EXAM: 09/11/2017 COMPARISON: CT abdomen pelvis of 09/11/2017 and 07/21/2016 HISTORY: Low back pain without injury CT DLP: 1412.7 mGycm Automated exposure control for dose reduction was used. CONTRAST: CT scan of the lumbar is performed with IV Contrast, patient injected with 100 mL of Isovue 300. TECHNIQUE: Enhanced CT of the lumbar spine was performed. Bone and soft tissue window settings are s ubmitted as well as coronal and sagittal reconstructions. FINDINGS: The lumbar vertebral bodies maintain normal vertebral body heights and alignment. Again the re is a mild levoscoliosis. Multilevel moderate degenerative changes are seen of the visualized thora columbar spine most pronounced at L5-S1. The visualized portions of the abdomen and pelvis are discus sed on the abdomen and pelvis dictation of the same date. L1-L2: Normal disc space height. No disc herniation protrusion or central stenosis. No facet joint arthropathy. No evidence for foraminal encroachment. L2-L3: Normal disc space height. No disc herniation protrusion or central stenosis. No facet joint arthropathy. No evidence for foraminal encroachment. L3-L4: There is a broad-based disc bulge resulting in minimal bilateral neuroforaminal narrowing. No spinal canal stenosis. L4-L5: There is a broad-based disc bulge resulting in mild bilateral neural foraminal narrowing, left slightly greater than right and no significant spinal canal stenosis. L5-S1: There is a possible central disc herniation and at least broad-based disc bulge. This would be better assessed with MRI. This creates mild spinal canal stenosis and mild bilateral neural from belinda rowing. IMPRESSION: 1. Mild levoscoliosis of the thoracolumbar spine is seen on the prior of 07/21/2016. 2. No evidence of vertebral body height loss or malalignment of the lumbar spine. 3. Moderate multilevel degenerative disc disease as described above. Possible central disc herniation at L5-S1 creating mild spinal canal stenosis. This could be better assessed with MRI.
[2017-09-11 18:04] VITALS: PULSE 100; RESP 18
[2017-09-11 18:06] VITALS: BP 116/78; TEMP 98
== END 2017-09-11 17:50 | disposition home or self-care (01) ==
LOC: EC 14:14
DX: M51.26 Other intervertebral disc displacement, lumbar region (principal); N28.1 Cyst of kidney, acquired; R11.0 Nausea; E11.9 Type 2 diabetes mellitus without complications; I10 Essential (primary) hypertension; E07.9 Disorder of thyroid, unspecified; F17.200 Nicotine dependence, unspecified, uncomplicated; Z85.41 Personal history of malignant neoplasm of cervix uteri; Z90.49 Acquired absence of other specified parts of digestive tract; Z90.710 Acquired absence of both cervix and uterus; Z98.890 Other specified postprocedural states; Z79.4 Long term (current) use of insulin; Z79.899 Other long term (current) drug therapy
CPT/HCPCS: 36415; 80053; 83690; 85025; 81003; 72132; 74178; 99284; 96374; 96375 ×2; 96361 ×2; J2270; J2930; J1885; Q9967